=== PATIENT | female | born 1995 | race Caucasian/White ===

== ENCOUNTER 2020-01-10 20:42 | Inpatient (IN) | payer MEDICAID, OTHER ==
[~2020-01-10] VITALS: Ht 154.9 cm; Wt 85.6 kg
[2020-01-10 21:47] LABS: Basophils # (auto) 0.1 10 ^3/uL (0-0.2); Hematocrit 46.7 % (36.0-46.0); Lymphocytes # (auto) 0.9 10 ^3/uL (0.4-5.4); Monocytes # (auto) 0.1 10 ^3/uL (0-1.3)
[2020-01-10 21:49] LABS: Eosinophils # (auto) 0.1 10 ^3/uL (0-0.8); Eosinophils % (auto) 2.9 % (0.0-7.0); Hemoglobin 16.4 g/dL (12.2-16.2); Lymphocytes % (auto) 16.8 % (10.0-50.0); Mean Corpuscular Hemoglobin 34.2 pg (28.0-32.0); Mean Corpuscular Hgb Conc. 35.1 g/dL (32.0-36.0); Mean Corpuscular Volume 97.6 fL (80.0-100.0); Monocytes % (auto) 2.3 % (0.0-12.0); Neutrophils # (auto) 3.9 10 ^3/uL (1.6-8.6); Nucleated Red Blood Cells % 0.2 %; Platelet Count (auto) 168 10^3/uL (140-450); Red Blood Cells 4.78 10^6/uL (4.0-5.20); White Blood Cell 5.1 10^3/uL (4.4-10.8)
[2020-01-10 21:58] LABS: Albumin 4.2 g/dL (3.4-5.0); Calcium 8.6 mg/dL (8.5-10.1); Potassium 3.7 mmol/L (3.5-5.1)
[2020-01-10 22:06] LABS: BUN/Creatinine Ratio 11.9
[2020-01-10 22:09] LABS: Bilirubin, Total 1.7 mg/dL (0.2-1.0); Total Protein 8.4 g/dL (6.4-8.2)
[2020-01-10 22:20] LABS: Urine Bacteria MANY /hpf (None Seen); Urine Blood 2+ /uL (Negative); Urine Mucus FEW (None Seen); Urine Specific Gravity 1.037 (1.001-1.035); Urine WBC 195 /hpf (0 - 5)
[2020-01-11] MEDS ORDERED: cefTRIAXone 1GM/50ML D5W 50 ML IV ONE (02:15)
[2020-01-11] MEDS ORDERED: SODIUM CHLORIDE 0.9% 1,000 ML IV ONE (02:15)
[2020-01-11 02:39] LABS: Alcohol, Urine < 3.0 mg/dL (0-10); Amphetamine Screen, Urine NEGATIVE (NEGATIVE); Barbiturate Scree,Urine NEGATIVE (NEGATIVE); Benzodiazephine Screen, Urine NEGATIVE (NEGATIVE); Cannabinoid Screen, Urine POSITIVE (NEGATIVE); Cocaine Screen, Urine NEGATIVE (NEGATIVE); Opiate Scree,Urine NEGATIVE (NEGATIVE); Phencyclidine Screen, Urine NEGATIVE (NEGATIVE)
[2020-01-11] MEDS ORDERED: ONDANSETRON HCL 4 MG/2 ML VIAL IV ONE (04:30)
[2020-01-11] MEDS ORDERED: SODIUM CHLORIDE 0.9% 1,000 ML IV SCH (06:06)
[2020-01-11] MEDS: ONDANSETRON HCL 4 MG/2 ML VIAL IV PRN ×3 (06:49→22:12)
[2020-01-11] MEDS: MORPHINE SULFATE 4 MG/ML SYR/VIAL IV PRN ×2 (06:49→22:13)
[2020-01-11 07:29] LABS: Potassium 3.8 mmol/L (3.5-5.1)
[2020-01-11 07:42] LABS: Albumin 3.6 g/dL (3.4-5.0); Bilirubin, Total 1.2 mg/dL (0.2-1.0); Calcium 8.2 mg/dL (8.5-10.1)
[2020-01-11] MEDS ORDERED: PANTOPRAZOLE 40 MG/10 ML VIAL INJ IV SCH (10:00)
[2020-01-11] MEDS: SOD CHL 0.9%/ KCL 20MEQ 1,000 ML IV SCH (11:33)
[2020-01-11 12:16] LABS: INR 1.13 (0.9-1.15); Partial Thromboplastin Time 29.3 sec (23.64-32.05)
[2020-01-11] MEDS: FOLIC ACID 1 MG, MULTIPLE VITAMIN 10 ML, MAGNESIUM SULF SDV 50% 8 MEQ, THIAMINE INJ 100... INJ SCH ×5 (12:16)
[2020-01-11] MEDS ORDERED: chlordiazePOXIDE HCL 5 MG CAP PO PRN (12:30)
[2020-01-11] MEDS ORDERED: LORazepam 2MG/ML-1ML VIAL IV ONE (13:30)
--- NOTE | 2020-01-11 16:34 | NUR ---
MS admit from ER [facility] admitted to [place]. NO report received from ED. Patient oriented to RAGHU OGDEN, primary RN, unit, room, bed, and unit policies regarding patient care and visiting hours. Patient weighed by bedscale and encouraged to call if they need something. All questions and concerns addressed, patient verbalized understanding. Ice chips, JellO, and apple juice given. Pt cautioned to eat/drink slowly to avoid emesis.
[2020-01-11 16:44] VITALS: BP 124/76
--- NOTE | 2020-01-11 17:51 | NUR ---
JellO Patient tolerated JellO well. She is taking it slowly and eating ice chips. No emesis reported at this time.
[2020-01-11 22:00] VITALS: BP 118/75
[2020-01-11] MEDS: PANTOPRAZOLE 40 MG TAB PO SCH (22:14)
[2020-01-12 05:00] VITALS: BP 118/72
[2020-01-12] MEDS: SOD CHL 0.9%/ KCL 20MEQ 1,000 ML IV SCH ×2 (05:23→08:51)
[2020-01-12 06:46] LABS: Basophils # (auto) 0 10 ^3/uL (0-0.2); Eosinophils # (auto) 0.3 10 ^3/uL (0-0.8); Monocytes # (auto) 0.3 10 ^3/uL (0-1.3); Monocytes % (auto) 7.3 % (0.0-12.0); Red Blood Cells 3.94 10^6/uL (4.0-5.20); White Blood Cell 3.7 10^3/uL (4.4-10.8)
[2020-01-12 06:47] LABS: BUN/Creatinine Ratio 4.9; Calcium 8.2 mg/dL (8.5-10.1); Potassium 4.2 mmol/L (3.5-5.1)
[2020-01-12 06:49] LABS: Basophils % (auto) 0.7 % (0.0-2.0); Eosinophils % (auto) 8.9 % (0.0-7.0); Hematocrit 39.8 % (36.0-46.0); Hemoglobin 13.4 g/dL (12.2-16.2); Lymphocytes # (auto) 1.7 10 ^3/uL (0.4-5.4); Lymphocytes % (auto) 46.6 % (10.0-50.0); Mean Corpuscular Hgb Conc. 33.7 g/dL (32.0-36.0); Mean Corpuscular Volume 101.1 fL (80.0-100.0); Neutrophils # (auto) 1.3 10 ^3/uL (1.6-8.6); Neutrophils % (auto) 36.5 % (37.0-80.0); Nucleated Red Blood Cells % 0.3 %; Platelet Count (auto) 122 10^3/uL (140-450); Red Cell Distribution Width 13.8 % (11.8-14.3)
[2020-01-12 06:50] LABS: Bilirubin, Total 0.8 mg/dL (0.2-1.0); Total Protein 6.3 g/dL (6.4-8.2)
[2020-01-12 09:00] VITALS: BP 127/91
[2020-01-12] MEDS: PANTOPRAZOLE 40 MG TAB PO SCH ×2 (09:22→21:31)
[2020-01-12] MEDS ORDERED: CIPROFLOXACIN HCL 500 MG TAB PO ONE (10:45)
[2020-01-12] MEDS: MORPHINE SULFATE 4 MG/ML SYR/VIAL IV PRN ×2 (12:08→21:23)
[2020-01-12] MEDS: ONDANSETRON HCL 4 MG/2 ML VIAL IV PRN ×2 (12:08→21:20)
[2020-01-12] MEDS: FOLIC ACID 1 MG, MULTIPLE VITAMIN 10 ML, MAGNESIUM SULF SDV 50% 8 MEQ, THIAMINE INJ 100... INJ SCH ×5 (13:33)
[2020-01-12 17:00] VITALS: BP 115/58
[2020-01-12] MEDS: CIPROFLOXACIN HCL 500 MG TAB PO SCH (21:31)
[2020-01-12 22:00] VITALS: BP 122/80
[2020-01-13 05:00] VITALS: BP_SYST 112; BP_SYST 99; BP_DIAS 65; BP_DIAS 70
[2020-01-13] MEDS: ONDANSETRON HCL 4 MG/2 ML VIAL IV PRN (05:06)
[2020-01-13] MEDS: MORPHINE SULFATE 4 MG/ML SYR/VIAL IV PRN (05:08)
[2020-01-13 06:29] LABS: Albumin 3.6 g/dL (3.4-5.0); Calcium 8.6 mg/dL (8.5-10.1); Potassium 3.7 mmol/L (3.5-5.1)
[2020-01-13 06:33] LABS: BUN/Creatinine Ratio 7.1; Bilirubin, Total 0.6 mg/dL (0.2-1.0); Total Protein 7.1 g/dL (6.4-8.2)
[2020-01-13 07:29] LABS: Basophils # (auto) 0 10 ^3/uL (0-0.2); Basophils % (auto) 0.7 % (0.0-2.0); Eosinophils # (auto) 0.3 10 ^3/uL (0-0.8); Eosinophils % (auto) 5.9 % (0.0-7.0); Hematocrit 43.2 % (36.0-46.0); Hemoglobin 14.3 g/dL (12.2-16.2); Lymphocytes % (auto) 45.6 % (10.0-50.0); Mean Corpuscular Hemoglobin 33.2 pg (28.0-32.0); Mean Corpuscular Hgb Conc. 33.1 g/dL (32.0-36.0); Mean Corpuscular Volume 100.3 fL (80.0-100.0); Monocytes # (auto) 0.4 10 ^3/uL (0-1.3); Monocytes % (auto) 7.9 % (0.0-12.0); Neutrophils # (auto) 1.8 10 ^3/uL (1.6-8.6); Neutrophils % (auto) 39.9 % (37.0-80.0); Nucleated Red Blood Cells % 0.2 %; Platelet Count (auto) 150 10^3/uL (140-450); Red Blood Cells 4.31 10^6/uL (4.0-5.20); Red Cell Distribution Width 14.2 % (11.8-14.3); White Blood Cell 4.4 10^3/uL (4.4-10.8)
--- NOTE | 2020-01-13 07:49 | NUR ---
RECEIVED REPORT AND ASSUMED CARE OF PT. A/OX4. DENIED S/S ACUTE DISTRESS. UPDATE PT WITH POC. BED AT LOWEST POSITION. CALL LIGHT AND BELONGINGS WITHIN REACH. WILL CONT TO MONITOR.
--- NOTE | 2020-01-13 07:51 | NUR ---
Spoke with pt at length re. her alcohol abuse and living conditions. 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 Pt would like a list of shelters or groups that help find or provide retirement/ living quarters. Pt admits to 'self medication' and has said she would like to stop the alcohol and does "not like the marijuana." Order written for MORENITA.
[2020-01-13 09:00] VITALS: BP 107/64
[2020-01-13] MEDS: PANTOPRAZOLE 40 MG TAB PO SCH (10:21)
[2020-01-13] MEDS: CIPROFLOXACIN HCL 500 MG TAB PO SCH (10:21)
[2020-01-13 11:04] LABS: Hepatitis A Ab IgM Negative; Hepatitis B Core IgM Negative; Hepatitis B Surface Antigen Negative (Negative); Hepatitis C Antibody Negative (Negative)
[2020-01-13] MEDS: FOLIC ACID 1 MG, MULTIPLE VITAMIN 10 ML, MAGNESIUM SULF SDV 50% 8 MEQ, THIAMINE INJ 100... INJ SCH ×5 (12:00)
[2020-01-13 13:24] VITALS: BP 106/57
--- NOTE | 2020-01-13 14:17 | NUR ---
A/OX4.DENIED S/S ACUTE DISTRESS.DC INSTRUCTIONS GIVEN AND PT VERBALIZED UNDERSTANDING.EMPHASIZED NEED FOR F/U APPOINTMENT.IV DC. PT LEFT UNIT IN STABLE CONDITION.
[2020-01-13 14:32] VITALS: BP 106/57
== END 2020-01-13 14:15 | disposition home or self-care (01) | DRG 241 ==
LOC: ER 20:42 → OVERFLOW 20:43 → WEST WING 01-11 14:59
PROVIDERS: ADMIT Nurse Practitioner; ATTEND Internal Medicine
DX: K29.20 Alcoholic gastritis without bleeding (principal); K70.10 Alcoholic hepatitis without ascites; K76.0 Fatty (change of) liver, not elsewhere classified; F10.20 Alcohol dependence, uncomplicated; N39.0 Urinary tract infection, site not specified; B96.20 Unspecified Escherichia coli [E. coli] as the cause of diseases classified elsewhere; R79.89 Other specified abnormal findings of blood chemistry; F41.9 Anxiety disorder, unspecified; R04.0 Epistaxis; N26.1 Atrophy of kidney (terminal); F12.90 Cannabis use, unspecified, uncomplicated; Z88.7 Allergy status to serum and vaccine
CPT/HCPCS: 36415; 74176; 76705; 80053; 80074; 80307; 80320; 81001; 81025; 83690; 85025; 85610; 85730; 87086; 87088; 87186; C9113; G0378; J0696; J2405

== ENCOUNTER 2020-08-15 20:51 | Emergency (ER) | payer MEDICAID ==
[~2020-08-15] VITALS: Ht 154.9 cm; Wt 61.2 kg
[2020-08-15 23:19] LABS: Urine Bacteria FEW /hpf (None Seen); Urine Blood Negative /uL (Negative); Urine Mucus FEW (None Seen); Urine Specific Gravity 1.013 (1.001-1.035); Urine WBC 436 /hpf (0 - 5); Urine WBC Clumps PRESENT /hpf (None Seen)
[2020-08-16 00:18] VITALS: BP 114/63
== END 2020-08-15 23:48 | disposition home or self-care (01) ==
LOC: ER 20:57
DX: O23.42 Unspecified infection of urinary tract in pregnancy, second trimester (principal); O26.892 Other specified pregnancy related conditions, second trimester; M54.5 Low back pain; Z3A.24 24 weeks gestation of pregnancy
CPT/HCPCS: 81001; 81025

== ENCOUNTER 2020-12-01 23:00 | Inpatient (IN) | payer MEDICAID ==
[~2020-12-01] VITALS: Ht 154.9 cm; Wt 69.4 kg
[2020-12-01] MEDS ORDERED: LIDOCAINE 2%HCL (LOCAL ANESTH.) INJ 20ML MDV IJ ONE (23:45)
[2020-12-01] MEDS ORDERED: BUTORPHANOL TARTRATE 2 MG/1 ML VIAL IV PRN (23:45)
[2020-12-01] MEDS ORDERED: PROMETHAZINE HCL 25 MG/ML 1ML IM PRN (23:45)
[2020-12-02 00:31] LABS: Basophils # (auto) 0.1 10 ^3/uL (0-0.2); Basophils % (auto) 0.5 % (0.0-2.0); Eosinophils # (auto) 0.4 10 ^3/uL (0-0.8); Eosinophils % (auto) 2.1 % (0.0-7.0); Hematocrit 34.6 % (36.0-46.0); Hemoglobin 11.9 g/dL (12.2-16.2); Lymphocytes # (auto) 3.4 10 ^3/uL (0.4-5.4); Lymphocytes % (auto) 18.8 % (10.0-50.0); Mean Corpuscular Hemoglobin 32.3 pg (28.0-32.0); Mean Corpuscular Hgb Conc. 34.5 g/dL (32.0-36.0); Mean Corpuscular Volume 93.7 fL (80.0-100.0); Monocytes # (auto) 0.9 10 ^3/uL (0-1.3); Monocytes % (auto) 4.8 % (0.0-12.0); Neutrophils # (auto) 13.5 10 ^3/uL (1.6-8.6); Neutrophils % (auto) 73.8 % (37.0-80.0); Platelet Count (auto) 262 10^3/uL (140-450); Red Blood Cells 3.69 10^6/uL (4.0-5.20); Red Cell Distribution Width 14.8 % (11.8-14.3); White Blood Cell 18.4 10^3/uL (4.4-10.8)
[2020-12-02 00:40] LABS: Urine Bacteria MANY /hpf (None Seen); Urine Blood Negative /uL (Negative); Urine Mucus FEW (None Seen); Urine Specific Gravity 1.014 (1.001-1.035); Urine WBC 8 /hpf (0 - 5)
[2020-12-02 00:47] LABS: Albumin 2.8 g/dL (3.4-5.0); Calcium 8.7 mg/dL (8.5-10.1); Potassium 3.8 mmol/L (3.5-5.1)
[2020-12-02] MEDS: LACTATED RINGER'S 1,000 ML IV SCH ×3 (00:47→08:38)
[2020-12-02 00:49] LABS: BUN/Creatinine Ratio 11.1; INR 0.91 (0.9-1.15); Partial Thromboplastin Time 28.1 sec (23.0-31.2)
[2020-12-02 00:59] LABS: Bilirubin, Total 0.3 mg/dL (0.2-1.0); Total Protein 7.2 g/dL (6.4-8.2)
[2020-12-02] MEDS ORDERED: TERBUTALINE SULFATE 1 MG/ML 1ML VIAL SC ONE (02:15)
[2020-12-02] MEDS ORDERED: LACT. RINGERS/OXYTOCIN 20UNITS 1,000 ML IV SCH (03:00)
[2020-12-02] MEDS ORDERED: METHYLERGONOVINE MALEATE 0.2 MG/ML AMP IM ONE ×2 (08:00→15:53)
[2020-12-02] MEDS ORDERED: DIPHENOXYLATE W/ATROPINE 2.5 MG TAB PO PRN (08:00)
[2020-12-02] MEDS ORDERED: CARBOPROST TROMETHAMINE 250 MCG/1ML VIAL IM ONE (08:00)
[2020-12-02] MEDS ORDERED: LACT. RINGERS/OXYTOCIN 20UNITS 500 ML IV ONE ×2 (10:00)
[2020-12-02] MEDS ORDERED: NALOXONE HCL 0.4 MG/ML VIAL IV ONE (11:30)
[2020-12-02] MEDS ORDERED: LIDOCAINE 1%-Mpf/Epinephrine 1:200,000 IJ ONE (11:30)
[2020-12-02] MEDS ORDERED: ROPIVACAINE HCL 200 ML EPI SCH (11:30)
[2020-12-02] MEDS ORDERED: LIDOCAINE HCL 2 %PF INJ 10ML AMP IJ ONE (11:30)
[2020-12-02] MEDS ORDERED: ePHEDrine SULFATE 50 MG/ML AMP IV ONE (11:30)
[2020-12-02] MEDS ORDERED: fentaNYL CITRATE 100 MCG/2 ML VL IV ONE (11:30)
[2020-12-02] MEDS ORDERED: LACTATED RINGER'S 1,000 ML IV ONE (11:30)
[2020-12-02] MEDS ORDERED: miSOPROStol 100 mcg TAB ONE (15:48)
[2020-12-02] MEDS: WITCH HAZEL-GLYCERIN PAD TOP PRN (18:51)
[2020-12-02] MEDS: PHISODERM TOP SOLN 240ML BTL TOP PRN (18:51)
[2020-12-02] MEDS: DERMOPLAST 60ML BOTTLE TOP PRN (18:51)
[2020-12-02] MEDS: IBUPROFEN 600 MG TAB PO PRN (20:27)
[2020-12-02] MEDS ORDERED: AMMONIA 0.33 ML INHALANT IN ONE (20:59)
[2020-12-02 23:00] VITALS: BP 129/53
[2020-12-02] MEDS: ACETAMINOPHEN 325 MG TAB PO PRN (23:17)
[2020-12-03 03:15] VITALS: BP 105/66
[2020-12-03 03:53] LABS: Alcohol, Urine < 3.0 mg/dL (0-10); Amphetamine Screen, Urine NEGATIVE (NEGATIVE); Barbiturate Scree,Urine NEGATIVE (NEGATIVE); Benzodiazephine Screen, Urine NEGATIVE (NEGATIVE); Cannabinoid Screen, Urine NEGATIVE (NEGATIVE); Cocaine Screen, Urine NEGATIVE (NEGATIVE); Opiate Scree,Urine NEGATIVE (NEGATIVE); Phencyclidine Screen, Urine NEGATIVE (NEGATIVE)
[2020-12-03] MEDS ORDERED: PREN-96 OR (04:19)
[2020-12-03 06:06] LABS: RPR Non Reactive (Non Reactive)
[2020-12-03 07:17] VITALS: BP 111/66
[2020-12-03] MEDS: IBUPROFEN 600 MG TAB PO PRN ×2 (07:43→17:09)
[2020-12-03 11:30] VITALS: BP 119/84
[2020-12-03 12:38] LABS: Basophils # (auto) 0 10 ^3/uL (0-0.2); Basophils % (auto) 0.2 % (0.0-2.0); Eosinophils # (auto) 0.2 10 ^3/uL (0-0.8); Eosinophils % (auto) 1.2 % (0.0-7.0); Hematocrit 34.3 % (36.0-46.0); Hemoglobin 11.8 g/dL (12.2-16.2); Lymphocytes # (auto) 2.6 10 ^3/uL (0.4-5.4); Lymphocytes % (auto) 14.7 % (10.0-50.0); Mean Corpuscular Hgb Conc. 34.3 g/dL (32.0-36.0); Mean Corpuscular Volume 93.1 fL (80.0-100.0); Monocytes # (auto) 0.8 10 ^3/uL (0-1.3); Monocytes % (auto) 4.4 % (0.0-12.0); Neutrophils # (auto) 13.8 10 ^3/uL (1.6-8.6); Neutrophils % (auto) 79.5 % (37.0-80.0); Platelet Count (auto) 246 10^3/uL (140-450); Red Blood Cells 3.69 10^6/uL (4.0-5.20); Red Cell Distribution Width 15.2 % (11.8-14.3); White Blood Cell 17.4 10^3/uL (4.4-10.8)
[2020-12-03 12:55] LABS: Albumin 2.3 g/dL (3.4-5.0); Calcium 8.8 mg/dL (8.5-10.1); Potassium 4.4 mmol/L (3.5-5.1)
[2020-12-03 12:58] LABS: BUN/Creatinine Ratio 11.6; Bilirubin, Total 0.3 mg/dL (0.2-1.0); Total Protein 6.2 g/dL (6.4-8.2)
[2020-12-03] MEDS: ACETAMINOPHEN 325 MG TAB PO PRN (14:19)
[2020-12-03 15:30] VITALS: BP 112/77
[2020-12-03] MEDS: WITCH HAZEL-GLYCERIN PAD TOP PRN (17:09)
[2020-12-03] MEDS: DERMOPLAST 60ML BOTTLE TOP PRN (17:09)
[2020-12-03] MEDS: PHISODERM TOP SOLN 240ML BTL TOP PRN (17:09)
[2020-12-03 19:30] VITALS: BP 134/77
[2020-12-04 00:09] VITALS: BP 131/78
[2020-12-04] MEDS: ACETAMINOPHEN 325 MG TAB PO PRN (01:02)
[2020-12-04 03:00] VITALS: BP 106/34
[2020-12-04] MEDS: IBUPROFEN 600 MG TAB PO PRN ×3 (03:16→17:02)
[2020-12-04 06:40] VITALS: BP 124/75
[2020-12-04 07:38] LABS: Basophils # (auto) 0.1 10 ^3/uL (0-0.2); Basophils % (auto) 0.7 % (0.0-2.0); Eosinophils # (auto) 0.4 10 ^3/uL (0-0.8); Eosinophils % (auto) 2.5 % (0.0-7.0); Hematocrit 32.1 % (36.0-46.0); Lymphocytes # (auto) 3.8 10 ^3/uL (0.4-5.4); Lymphocytes % (auto) 23.7 % (10.0-50.0); Mean Corpuscular Hemoglobin 32.5 pg (28.0-32.0); Mean Corpuscular Hgb Conc. 34.4 g/dL (32.0-36.0); Mean Corpuscular Volume 94.6 fL (80.0-100.0); Monocytes # (auto) 0.7 10 ^3/uL (0-1.3); Monocytes % (auto) 4.4 % (0.0-12.0); Neutrophils # (auto) 11.1 10 ^3/uL (1.6-8.6); Neutrophils % (auto) 68.7 % (37.0-80.0); Platelet Count (auto) 246 10^3/uL (140-450); Red Cell Distribution Width 15.1 % (11.8-14.3); White Blood Cell 16.2 10^3/uL (4.4-10.8)
[2020-12-04 10:30] VITALS: BP 127/77
[2020-12-04 15:15] VITALS: BP 115/66
[2020-12-04] MEDS: DERMOPLAST 60ML BOTTLE TOP PRN (17:02)
[2020-12-04] MEDS: WITCH HAZEL-GLYCERIN PAD TOP PRN (17:02)
== END 2020-12-04 18:03 | disposition home or self-care (01) | DRG 560 ==
LOC: LDRP 23:00 → OBSVTOIN 23:00 → LDRP 12-02
PROVIDERS: ADMIT Obstetrics & Gynecology; ATTEND Obstetrics & Gynecology
PROC: 10E0XZZ Delivery of Products of Conception, External Approach (ICD-10-PCS; principal; 2020-12-02)
PROC: 0UQMXZZ Repair Vulva, External Approach (ICD-10-PCS; 2020-12-02)
PROC: 3E0R3BZ Introduction of Anesthetic Agent into Spinal Canal, Percutaneous Approach (ICD-10-PCS; 2020-12-02)
PROC: 00HU33Z Insertion of Infusion Device into Spinal Canal, Percutaneous Approach (ICD-10-PCS; 2020-12-02)
DX: O69.81X0 Labor and delivery complicated by cord around neck, without compression, not applicable or unspecified (principal); O71.82 Other specified trauma to perineum and vulva; Z37.0 Single live birth; Z3A.39 39 weeks gestation of pregnancy; Z20.822 Contact with and (suspected) exposure to COVID-19; Z88.7 Allergy status to serum and vaccine
CPT/HCPCS: 36415; 59025; 59409; 62282; 80053; 80307; 81001; 81002; 85025; 85610; 85730; 86592; 86850; 86900; 86901; 87086; 87088; 87186; 87426; 96361; 96365; 96366; 96372; G0378; J2590

== ENCOUNTER → 2021-10-16 | Outpatient (CLI) | payer MEDICAID ==
[~2021-10-16] MED LIST: PREN-96 OR
[2021-10-16 11:31] LABS: Basophils # (auto) 0 10 ^3/uL (0-0.2); Basophils % (auto) 0.4 % (0.0-2.0); Eosinophils # (auto) 0.2 10 ^3/uL (0-0.8); Eosinophils % (auto) 2.5 % (0.0-7.0); Hematocrit 37.5 % (36.0-46.0); Lymphocytes # (auto) 2.4 10 ^3/uL (0.4-5.4); Lymphocytes % (auto) 24.2 % (10.0-50.0); Mean Corpuscular Hemoglobin 31.4 pg (28.0-32.0); Mean Corpuscular Hgb Conc. 34.7 g/dL (32.0-36.0); Mean Corpuscular Volume 90.5 fL (80.0-100.0); Monocytes # (auto) 0.5 10 ^3/uL (0-1.3); Monocytes % (auto) 5.5 % (0.0-12.0); Neutrophils # (auto) 6.6 10 ^3/uL (1.6-8.6); Neutrophils % (auto) 67.4 % (37.0-80.0); Nucleated Red Blood Cells % 0.1 %; Red Blood Cells 4.14 10^6/uL (4.0-5.20); Red Cell Distribution Width 13.5 % (11.8-14.3); White Blood Cell 9.8 10^3/uL (4.4-10.8)
[2021-10-16 11:51] LABS: Amphetamine Screen, Urine NEGATIVE (NEGATIVE); Barbiturate Scree,Urine NEGATIVE (NEGATIVE); Benzodiazephine Screen, Urine NEGATIVE (NEGATIVE); Cannabinoid Screen, Urine NEGATIVE (NEGATIVE); Cocaine Screen, Urine NEGATIVE (NEGATIVE); Opiate Scree,Urine NEGATIVE (NEGATIVE); Phencyclidine Screen, Urine NEGATIVE (NEGATIVE)
[2021-10-17 07:07] LABS: RPR Non Reactive (Non Reactive)
== END | disposition home or self-care (01) ==
LOC: LAB 10:20
PROVIDERS: ATTEND Obstetrics & Gynecology
DX: Z34.80 Encounter for supervision of other normal pregnancy, unspecified trimester (principal); Z31.430 Encounter of female for testing for genetic disease carrier status for procreative management; Z36.0 Encounter for antenatal screening for chromosomal anomalies; N39.0 Urinary tract infection, site not specified
CPT/HCPCS: 36415; 80307; 83036; 84112; 84702; 85025; 86592; 86703; 86762; 86850; 86900; 86901; 87086; 87088; 87186; 87340

== ENCOUNTER 2022-03-11 21:19 | Observation (INO) | payer MEDICAID ==
[~2022-03-11] VITALS: Ht 154.9 cm; Wt 70.3 kg
[2022-03-11] MEDS ORDERED: LACTATED RINGER'S 1,000 ML IV SCH (22:15)
[2022-03-11] MEDS ORDERED: PROMETHAZINE HCL 25 MG/ML 1ML IV ONE (22:15)
[2022-03-11] MEDS ORDERED: ACETAMINOPHEN 650 mg PER 20.3 mL UD PO ONE (22:15)
[2022-03-11] MEDS ORDERED: LACTATED RINGER'S 1,000 ML IV ONE (22:15)
[2022-03-11 23:10] LABS: Urine Bacteria FEW /hpf (None Seen); Urine Blood Negative /uL (Negative); Urine Specific Gravity 1.006 (1.001-1.035); Urine WBC <1 /hpf (0 - 5)
[2022-03-11] MEDS ORDERED: ACETAMINOPHEN 325 MG TAB PO ONE (23:30)
[2022-03-11 23:35] LABS: Albumin 2.5 g/dL (3.4-5.0); Calcium 7.6 mg/dL (8.5-10.1); Potassium 3.8 mmol/L (3.5-5.1)
[2022-03-11 23:38] LABS: BUN/Creatinine Ratio 6.1
[2022-03-11 23:41] LABS: Bilirubin, Total 0.2 mg/dL (0.2-1.0)
[2022-03-11 23:50] LABS: Hematocrit 28.4 % (36.0-46.0); Hemoglobin 9.5 g/dL (12.2-16.2); Mean Corpuscular Hemoglobin 31.9 pg (28.0-32.0); Mean Corpuscular Hgb Conc. 33.4 g/dL (32.0-36.0); Mean Corpuscular Volume 95.6 fL (80.0-100.0); Red Blood Cells 2.97 10^6/uL (4.0-5.20); Red Cell Distribution Width 13.5 % (11.8-14.3); White Blood Cell 17.8 10^3/uL (4.4-10.8)
[2022-03-12 00:03] LABS: Basophils % (manual) 0 (0.0-2.0); Blast Cells 0; Promyelocytes % 0; Reactive Lymphocytes 0
[2022-03-12 00:49] LABS: Band Neutrophils % (manual) 15; Eosinophils % (manual) 2 (0-7); Lymphocytes % (manual) 7 (10.0-50.0); Metamyelocytes % 1; Monocytes % (manual) 9 (0-12); Myelocytes % 9
== END 2022-03-12 02:18 | disposition home or self-care (01) ==
LOC: LDRP 21:19
PROVIDERS: ADMIT Obstetrics & Gynecology Obstetrics; ATTEND Obstetrics & Gynecology Obstetrics
DX: O98.513 Other viral diseases complicating pregnancy, third trimester (principal); U07.1 COVID-19; O21.2 Late vomiting of pregnancy; O26.893 Other specified pregnancy related conditions, third trimester; R51.9 Headache, unspecified; R50.9 Fever, unspecified; R05.9 Cough, unspecified; R09.81 Nasal congestion; Z3A.31 31 weeks gestation of pregnancy; Z86.16 Personal history of COVID-19
CPT/HCPCS: 36415; 59025; 80053; 81001; 85007; 85027; 87426; 94760; 94762; 96361; 96374; G0378; J2550; U0003; 81002; 96360

== ENCOUNTER 2022-03-12 03:33 | Emergency (ER) | payer MEDICAID ==
[~2022-03-12] VITALS: Ht 154.9 cm; Wt 70.0 kg
[2022-03-12] MEDS ORDERED: SODIUM CHLORIDE 0.9% 1,000 ML IV ONE (04:00)
[2022-03-12 04:47] LABS: Lactic Acid w/Reflex 2.1 mmol/L (0.4-2.0)
[2022-03-12 12:41] VITALS: BP 143/96
== END 2022-03-12 10:05 | disposition short-term general hospital (02) ==
LOC: ER 03:33
DX: O98.513 Other viral diseases complicating pregnancy, third trimester (principal); U07.1 COVID-19; O99.513 Diseases of the respiratory system complicating pregnancy, third trimester; J98.8 Other specified respiratory disorders; Z3A.31 31 weeks gestation of pregnancy
CPT/HCPCS: 71045; 83605; 87040; 87077; 87186; 96360; 99285; J7030

== ENCOUNTER → 2022-04-10 | Outpatient (CLI) | payer MEDICAID ==
[2022-04-10 09:30] LABS: Hematocrit 31.4 % (36.0-46.0); Hemoglobin 10.3 g/dL (12.2-16.2); Mean Corpuscular Hemoglobin 30.5 pg (28.0-32.0); Mean Corpuscular Hgb Conc. 32.8 g/dL (32.0-36.0); Red Blood Cells 3.37 10^6/uL (4.0-5.20); Red Cell Distribution Width 13.5 % (11.8-14.3)
[2022-04-10 09:40] LABS: Basophils % (manual) 0 (0.0-2.0); Metamyelocytes % 0; Reactive Lymphocytes 0
[2022-04-10 12:30] LABS: Band Neutrophils % (manual) 4; Blast Cells 1; Eosinophils % (manual) 2 (0-7); Lymphocytes % (manual) 14 (10.0-50.0); Monocytes % (manual) 10 (0-12); Myelocytes % 2; Promyelocytes % 1
[2022-04-11 07:06] LABS: RPR Non Reactive (Non Reactive)
== END | disposition home or self-care (01) ==
LOC: LAB 08:50
PROVIDERS: ATTEND Obstetrics & Gynecology
DX: Z34.80 Encounter for supervision of other normal pregnancy, unspecified trimester (principal); Z3A.00 Weeks of gestation of pregnancy not specified
CPT/HCPCS: 36415; 84112; 85007; 85027; 86592

== ENCOUNTER 2022-05-01 07:16 | Observation (INO) | payer MEDICAID | END 2022-05-01 12:32 | disposition home or self-care (01) | LOC: UNDOADMOB 10:29 → LDRP 10:29 → UNDODISOB 12:32 | PROVIDERS: ADMIT Obstetrics & Gynecology; ATTEND Obstetrics & Gynecology | DX: O62.9 Abnormality of forces of labor, unspecified (principal); O12.03 Gestational edema, third trimester; O99.333 Smoking (tobacco) complicating pregnancy, third trimester; F17.200 Nicotine dependence, unspecified, uncomplicated; O26.893 Other specified pregnancy related conditions, third trimester; R10.2 Pelvic and perineal pain; Z3A.39 39 weeks gestation of pregnancy | CPT/HCPCS: 59025; 76818; G0378 ==

== ENCOUNTER 2022-05-08 21:00 | Observation (INO) | payer MEDICAID | END 2022-05-08 22:51 | disposition home or self-care (01) | LOC: LDRP 21:00 | PROVIDERS: ADMIT Obstetrics & Gynecology; ATTEND Obstetrics & Gynecology | DX: O48.0 Post-term pregnancy (principal); O26.893 Other specified pregnancy related conditions, third trimester; R10.9 Unspecified abdominal pain; R11.0 Nausea; O12.03 Gestational edema, third trimester; Z3A.40 40 weeks gestation of pregnancy; Z87.891 Personal history of nicotine dependence | CPT/HCPCS: 59025; 76818; 81002; G0378 ==

== ENCOUNTER 2022-05-10 21:05 | Inpatient (IN) | payer MEDICAID ==
[~2022-05-10] VITALS: Ht 154.9 cm; Wt 74.4 kg
[2022-05-10] MEDS ORDERED: DERMOPLAST 60ML BOTTLE TOP PRN (22:00)
[2022-05-10] MEDS ORDERED: LIDOCAINE 2%HCL (LOCAL ANESTH.) INJ 10ml MDV IJ PRN (22:00)
[2022-05-10] MEDS ORDERED: PHISODERM TOP SOLN 240ML BTL TOP PRN (22:00)
[2022-05-10] MEDS ORDERED: WITCH HAZEL-GLYCERIN PAD TOP PRN (22:00)
[2022-05-10] MEDS ORDERED: BUTORPHANOL TARTRATE 2 MG/1 ML VIAL IV PRN ×2 (22:00)
[2022-05-10] MEDS ORDERED: PROMETHAZINE HCL 25 MG/ML 1ML IV PRN (22:00)
[2022-05-10 22:28] LABS: Hematocrit 28.5 % (36.0-46.0); Hemoglobin 9.5 g/dL (12.2-16.2); Mean Corpuscular Hemoglobin 30.6 pg (28.0-32.0); Mean Corpuscular Hgb Conc. 33.3 g/dL (32.0-36.0); Mean Corpuscular Volume 91.9 fL (80.0-100.0); Red Blood Cells 3.11 10^6/uL (4.0-5.20); Red Cell Distribution Width 14.8 % (11.8-14.3); White Blood Cell 17.8 10^3/uL (4.4-10.8)
[2022-05-10 22:38] LABS: Urine Bacteria FEW /hpf (None Seen); Urine Blood Negative /uL (Negative); Urine Mucus FEW (None Seen); Urine Specific Gravity 1.027 (1.001-1.035); Urine WBC 2 /hpf (0 - 5)
[2022-05-10 22:45] LABS: Albumin 2.3 g/dL (3.4-5.0); Potassium 3.8 mmol/L (3.5-5.1)
[2022-05-10 22:47] LABS: Basophils % (manual) 0 (0.0-2.0); Blast Cells 0; Metamyelocytes % 0; Promyelocytes % 0; Reactive Lymphocytes 0
[2022-05-10 22:47] LABS: Alcohol, Urine < 3.0 mg/dL (0-10); Amphetamine Screen, Urine NEGATIVE (NEGATIVE); Barbiturate Scree,Urine NEGATIVE (NEGATIVE); Benzodiazephine Screen, Urine NEGATIVE (NEGATIVE); Cannabinoid Screen, Urine NEGATIVE (NEGATIVE); Cocaine Screen, Urine NEGATIVE (NEGATIVE); Opiate Scree,Urine NEGATIVE (NEGATIVE); Phencyclidine Screen, Urine NEGATIVE (NEGATIVE)
[2022-05-10 22:48] LABS: Bilirubin, Total 0.3 mg/dL (0.2-1.0); Total Protein 5.9 g/dL (6.4-8.2)
[2022-05-10 22:49] LABS: INR 0.92 (0.9-1.15); Partial Thromboplastin Time 27.1 sec (24.6-33.4)
[2022-05-10] MEDS: LACTATED RINGER'S 1,000 ML IV SCH (22:56)
[2022-05-10 23:19] LABS: Band Neutrophils % (manual) 2; Eosinophils % (manual) 2 (0-7); Lymphocytes % (manual) 19 (10.0-50.0); Monocytes % (manual) 2 (0-12); Myelocytes % 1
[2022-05-11] MEDS ORDERED: miSOPROStol 50 MCG per PRE-CUT 1/2 TAB PO PRN
[2022-05-11] MEDS: LACTATED RINGER'S 1,000 ML IV SCH ×4 (00:50→23:08)
[2022-05-11] MEDS ORDERED: METHYLERGONOVINE MALEATE 0.2 MG/ML AMP IM PRN (01:15)
[2022-05-11] MEDS ORDERED: LACT. RINGERS/OXYTOCIN 20UNITS 500 ML IV ONE ×2 (01:15→01:45)
[2022-05-11] MEDS ORDERED: TERBUTALINE SULFATE 1 MG/ML 1ML VIAL SC PRN (05:00)
[2022-05-11] MEDS ORDERED: LACT. RINGERS/OXYTOCIN 20UNITS 1,000 ML IV SCH (05:00)
[2022-05-11] MEDS ORDERED: ROPIVACAINE HCL 200 ML EPI SCH ×2 (12:45→13:15)
[2022-05-11] MEDS ORDERED: ePHEDrine SULFATE 50 MG/ML AMP IV ONE (12:45)
[2022-05-11] MEDS ORDERED: LACTATED RINGER'S 1,000 ML IV ONE (12:45)
[2022-05-11] MEDS ORDERED: fentaNYL CITRATE 100 MCG/2 ML VL IV ONE (12:45)
[2022-05-11] MEDS ORDERED: NALOXONE HCL 0.4 MG/ML VIAL IV ONE (12:45)
[2022-05-11] MEDS ORDERED: NIF10C PO (13:15)
[2022-05-11] MEDS ORDERED: FAMOTIDINE (10MG/ML) 2ML VL IV ONE (13:44)
[2022-05-11] MEDS ORDERED: ceFAZolin 1GM/50ML 50 ML IV ONE (17:45)
[2022-05-11] MEDS ORDERED: IRON50IN3 IJ (17:45)
[2022-05-11] MEDS ORDERED: IBUP800T27 PO (17:45)
[2022-05-11] MEDS ORDERED: DOCU-94 PO (17:45)
[2022-05-11] MEDS ORDERED: HYDR-4902 PO (17:45)
[2022-05-11] MEDS ORDERED: ceFAZolin 2 GM in D5W 5% 100 ML IV STA (18:09)
[2022-05-11] MEDS ORDERED: ceFAZolin 1GM/50ML 100 ML IV ONE (18:11)
[2022-05-11] MEDS ORDERED: MORPHINE SULF PF 5 MG/10 ML VIAL ONE (18:13)
[2022-05-11] MEDS ORDERED: LIDOCAINE 2% (LOCAL ANESTH.) PF 5ml SDV ONE (18:14)
[2022-05-11] MEDS ORDERED: ePHEDrine SULFATE 50 MG/ML AMP ONE (18:14)
[2022-05-11] MEDS ORDERED: DexAMETHasone SOD PHOS 10MG/1ML VIAL INJ ONE (18:14)
[2022-05-11] MEDS ORDERED: ONDANSETRON HCL 4 MG/2 ML VIAL ONE ×2 (18:14→19:46)
[2022-05-11] MEDS ORDERED: GLYCOPYRROLATE 0.2 MG/ML 1ML VIAL ONE (18:14)
[2022-05-11] MEDS ORDERED: PHENYLEPHRINE HCL 10 MG/ML VL ONE (18:14)
[2022-05-11] MEDS ORDERED: oxyTOCIN 10 UNIT/ML 10ML VIAL ONE (18:14)
[2022-05-11] MEDS ORDERED: SUCCINYLCHOLINE CHLORIDE 20 MG/ML 10ML VIAL IV ONE (18:20)
[2022-05-11] MEDS ORDERED: miSOPROStol 100 mcg TAB SL PRN (18:30)
[2022-05-11] MEDS ORDERED: CARBOPROST TROMETHAMINE 250 MCG/1ML VIAL IM PRN (18:30)
[2022-05-11] MEDS ORDERED: ONDANSETRON HCL 4 MG/2 ML VIAL IV PRN ×4 (19:00→21:45)
[2022-05-11] MEDS: ceFAZolin 1GM/50ML 50 ML IV SCH (19:00)
[2022-05-11] MEDS ORDERED: GUM (CHEWING) 1 GUM CHEW CHEW ONE (19:00)
[2022-05-11] MEDS ORDERED: LACT. RINGERS/OXYTOCIN 20UNITS 1,000 ML IV ONE (19:00)
[2022-05-11] MEDS ORDERED: MEPERIDINE HCL (25 MG/ML) 1ML VIAL ONE (19:31)
[2022-05-11] MEDS ORDERED: NALBUPHINE HCL 10 MG/1ml INJECTION SUBCUT PRN (19:45)
[2022-05-11] MEDS ORDERED: KETOROLAC TROMETH 30 MG/ML 1ML VIAL IV ONE (19:45)
[2022-05-11] MEDS ORDERED: METOCLOPRAMIDE HCL 5MG/ml INJ 2ml VIAL IV PRN (19:45)
[2022-05-11] MEDS ORDERED: NALOXONE HCL 0.4 MG/ML VIAL IV PRN (19:45)
[2022-05-11] MEDS ORDERED: DexAMETHasone SOD PHOS 10MG/1ML VIAL INJ IV PRN (19:45)
[2022-05-11] MEDS ORDERED: diphenhdrAMINE HCL 50 MG/1 ML VL IV PRN (19:45)
[2022-05-11] MEDS ORDERED: KETOROLAC TROMETH 30 MG/ML 1ML VIAL IV PRN (19:45)
[2022-05-11 20:30] VITALS: BP 134/70
[2022-05-11 21:30] VITALS: BP 132/71
[2022-05-11] MEDS ORDERED: LACTATED RINGER'S 1,000 ML IV SCH (21:45)
[2022-05-11] MEDS ORDERED: ePHEDrine SULFATE 50 MG/ML AMP IV PRN (21:45)
[2022-05-11] MEDS: DIPHENOXYLATE W/ATROPINE 2.5 MG TAB PO SCH (22:00)
[2022-05-11 22:30] VITALS: BP 120/86
[2022-05-11 23:00] VITALS: BP 120/86
[2022-05-11 23:30] VITALS: BP 117/62
[2022-05-12] VITALS (19 sets, daily range): BP systolic 91–118; BP diastolic 49–90
[2022-05-12] MEDS: ACETAMINOPHEN IV 1000 MG/100ML (10MG/ML) IV PRN ×2 (01:37→09:40)
[2022-05-12] MEDS: ceFAZolin 1GM/50ML 50 ML IV SCH ×2 (03:06→10:43)
[2022-05-12 06:22] LABS: Basophils # (auto) 0.2 10 ^3/uL (0-0.2); Eosinophils # (auto) 0 10 ^3/uL (0-0.8); Eosinophils % (auto) 0.1 % (0.0-7.0); Hematocrit 27.4 % (36.0-46.0); Hemoglobin 9.7 g/dL (12.2-16.2); Lymphocytes # (auto) 1.9 10 ^3/uL (0.4-5.4); Lymphocytes % (auto) 8.8 % (10.0-50.0); Mean Corpuscular Hemoglobin 32.5 pg (28.0-32.0); Mean Corpuscular Hgb Conc. 35.4 g/dL (32.0-36.0); Mean Corpuscular Volume 91.7 fL (80.0-100.0); Monocytes # (auto) 0.9 10 ^3/uL (0-1.3); Neutrophils # (auto) 18.7 10 ^3/uL (1.6-8.6); Neutrophils % (auto) 86.1 % (37.0-80.0); Red Blood Cells 2.99 10^6/uL (4.0-5.20); Red Cell Distribution Width 14.7 % (11.8-14.3); White Blood Cell 21.7 10^3/uL (4.4-10.8)
[2022-05-12] MEDS ORDERED: HYDROcodone-ACET 5/325MG TAB PO PRN (07:45)
[2022-05-12] MEDS ORDERED: BISACODYL 10 MG RECT SUPP PR PRN (07:45)
[2022-05-12] MEDS: IBUPROFEN 800 MG TAB PO PRN ×2 (07:55→17:16)
[2022-05-12 08:06] LABS: RPR Non Reactive (Non Reactive)
[2022-05-12] MEDS: DOCUSATE SOD 100 MG CAP PO SCH ×2 (09:39→21:31)
[2022-05-12] MEDS: FERROUS SULFATE 325mg EC TAB PO SCH ×2 (09:40→21:31)
[2022-05-12] MEDS: SIMETHICONE 80 MG CHEWABLE TABLET PO SCH ×3 (12:31→21:31)
[2022-05-12] MEDS: HYDROcodone-ACET 5/325MG TAB PO PRN ×2 (14:01→21:31)
[2022-05-13] MEDS: IBUPROFEN 800 MG TAB PO PRN ×3 (01:28→17:32)
[2022-05-13 03:00] VITALS: BP 110/53
[2022-05-13] MEDS: HYDROcodone-ACET 5/325MG TAB PO PRN ×4 (03:00→23:52)
[2022-05-13] MEDS: SIMETHICONE 80 MG CHEWABLE TABLET PO SCH ×2 (06:00→20:15)
[2022-05-13] MEDS ORDERED: FAMOTIDINE (10MG/ML) 2ML VL IV PRN (06:30)
[2022-05-13 07:00] VITALS: BP 96/42
[2022-05-13] MEDS: DOCUSATE SOD 100 MG CAP PO SCH ×2 (09:54→21:55)
[2022-05-13 11:00] VITALS: BP 118/64
[2022-05-13 15:00] VITALS: BP 116/59
[2022-05-13 18:30] VITALS: BP 124/82
[2022-05-13] MEDS: FERROUS SULFATE 325mg EC TAB PO SCH (21:55)
[2022-05-13] MEDS: DIPHENOXYLATE W/ATROPINE 2.5 MG TAB PO SCH (22:00)
[2022-05-13 23:00] VITALS: BP 118/69
[2022-05-14 02:30] VITALS: BP 117/17
[2022-05-14] MEDS: IBUPROFEN 800 MG TAB PO PRN (03:55)
[2022-05-14] MEDS: HYDROcodone-ACET 5/325MG TAB PO PRN (05:40)
[2022-05-14 06:45] VITALS: BP 104/57
[2022-05-14] MEDS ORDERED: FERR-7 PO (08:30)
== END 2022-05-14 09:00 | disposition home or self-care (01) | DRG 540 ==
LOC: LDRP 21:05
PROVIDERS: ADMIT Obstetrics & Gynecology; ATTEND Obstetrics & Gynecology
PROC: 10D00Z1 Extraction of Products of Conception, Low, Open Approach (ICD-10-PCS; principal; 2022-05-11 18:22)
DX: O48.0 Post-term pregnancy (principal); Q60.0 Renal agenesis, unilateral; Z3A.40 40 weeks gestation of pregnancy; O69.81X0 Labor and delivery complicated by cord around neck, without compression, not applicable or unspecified; Z20.822 Contact with and (suspected) exposure to COVID-19; O99.02 Anemia complicating childbirth; Z37.0 Single live birth; Z87.891 Personal history of nicotine dependence
CPT/HCPCS: 36415; 59025; 62282; 80053; 80307; 81001; 81002; 85007; 85025; 85027; 85610; 85730; 86592; 86850; 86900; 86901; 86920; 87426; 94760; 94762; 96360; 96361; 96365; 96366; G0378; J0131; J0330; J0690; J1100; J1885; J2001; J2405; J2590; J3490; J7060

== ENCOUNTER 2023-04-30 15:34 | Emergency (ER) | payer MEDICAID ==
[~2023-04-30] VITALS: Ht 154.9 cm; Wt 66.6 kg
[~2023-04-30 15:34] MED LIST changes: +DOCU-94 PO; +FERR-7 PO; +HYDR-4902 PO; +IBUP-1456 PO
[2023-04-30 16:38] LABS: Urine Bacteria FEW /hpf (None Seen); Urine Blood Negative /uL (Negative); Urine Clarity Clear (Clear); Urine Color Colorless (Yellow); Urine Protein, UAD Negative (Negative); Urine Specific Gravity 1.002 (1.001-1.035); Urine Urobilinogen Normal (Negative); Urine WBC 30 /hpf (0 - 5)
[2023-04-30] MEDS ORDERED: ONDANSETRON ODT 4 MG TAB PO ONE (17:45)
[2023-04-30 18:33] LABS: Basophils # (auto) 0 10 ^3/uL (0-0.2); Basophils % (auto) 0.4 % (0.0-2.0); Eosinophils # (auto) 0.3 10 ^3/uL (0-0.8); Eosinophils % (auto) 2.7 % (0.0-7.0); Hematocrit 38.5 % (36.0-46.0); Hemoglobin 13.2 g/dL (12.2-16.2); Lymphocytes # (auto) 2.8 10 ^3/uL (0.4-5.4); Lymphocytes % (auto) 26.4 % (10.0-50.0); Mean Corpuscular Hemoglobin 31.7 pg (28.0-32.0); Mean Corpuscular Hgb Conc. 34.3 g/dL (32.0-36.0); Mean Corpuscular Volume 92.3 fL (80.0-100.0); Monocytes # (auto) 0.3 10 ^3/uL (0-1.3); Monocytes % (auto) 3.2 % (0.0-12.0); Neutrophils # (auto) 7.3 10 ^3/uL (1.6-8.6); Neutrophils % (auto) 67.3 % (37.0-80.0); Nucleated Red Blood Cells % 0.1 %; Red Blood Cells 4.17 10^6/uL (4.0-5.20); Red Cell Distribution Width 13.2 % (11.8-14.3); White Blood Cell 10.8 10^3/uL (4.4-10.8)
[2023-04-30 18:51] LABS: Alanine Aminotransferase 117 U/L (7-40); Albumin 4.3 g/dL (3.2-4.8); Alkaline Phosphatase 74 U/L (46-116); Anion Gap 5 (5-15); Aspartate Aminotransferase 54 U/L (13-40); BUN/Creatinine Ratio 13.1 (10.0-20.0); Bilirubin, Total 0.3 mg/dL (0.2-1.0); Blood Urea Nitrogen 11 mg/dL (9-23); Calcium 8.8 mg/dL (8.7-10.4); Carbon Dioxide 26 mmol/L (20-30); Chloride 108 mmol/L (98-107); Glucose 93 mg/dL (74-106); Lipase 107 U/L (12-53); Potassium 3.9 mmol/L (3.5-5.1); Sodium 139 mmol/L (136-145); Total Protein 6.7 g/dL (5.7-8.2)
[2023-04-30] MEDS ORDERED: cefTRIAXone SOD 1,000 MG VL IM ONE (19:00)
[2023-04-30] MEDS ORDERED: SODIUM CHLORIDE 0.9% 1,000 ML IV ONE (20:00)
[2023-04-30 20:48] VITALS: BP 155/89; PULSE 94; RESP 16; TEMP 99; O2SAT 98
[2023-04-30] MEDS ORDERED: CEPH500T PO (21:10)
[2023-04-30] MEDS ORDERED: MECLIZINE HCL 25 MG TAB PO ONE (23:15)
[2023-04-30] MEDS: KETOROLAC TROMETH 30 MG/ML 1ML VIAL IV ONE ×2 (23:29→23:32)
== END 2023-04-30 23:40 | disposition home or self-care (01) ==
LOC: ER 15:34
DX: K85.90 Acute pancreatitis without necrosis or infection, unspecified (principal); N12 Tubulo-interstitial nephritis, not specified as acute or chronic; Z88.8 Allergy status to other drugs, medicaments and biological substances; Z79.1 Long term (current) use of non-steroidal anti-inflammatories (NSAID); Z79.899 Other long term (current) drug therapy
CPT/HCPCS: 36415; 74176; 80053; 81001; 81025; 83690; 85025; 87040; 96361; 96372; 96374; 99285; J0696; J1885; J7030; J8597; Q0162

== ENCOUNTER 2024-09-21 09:20 | Inpatient (IN) | payer MEDICAID ==
[~2024-09-21] VITALS: Ht 154.9 cm; Wt 69.0 kg
[~2024-09-21 09:20] MED LIST changes: +CEPH500T PO
--- NOTE | 2024-09-21 10:10 | ED.PDOC ---
GI ASSESSMENT HPI Comments 29 year old female presents to the ED with chief complaint of abdominal pain. Patient reports that she has been experiencing RLQ abdominal pain since this morning with associated N/V yesterday along with right flank pain, headache, and dysuria for the past week. Patient relays that she has only one kidney on the right side where her pain is currently. Patient denies any diarrhea, fever, chills, chest pain, SOB, hematuria, or dizziness. Chief Complaint: Abdominal Pain Time Seen by MD: 10:05 Primary Care Provider: none Reviewed Notes: Nurses Notes, Medications, Allergies Allergies: Coded Allergies: Diphtheria Toxoid (Verified Allergy, Unknown, 05/10/22) Pertussis Vaccine (Verified Allergy, Unknown, Hives, 05/11/22) Hives and leg atrophy during childhood. Tetanus Toxoids (Verified Allergy, Unknown, 05/10/22) Uncoded Allergies: TDAP (Allergy, Unknown, 01/10/20) Home Meds Active Scripts Cephalexin Monohydrate (Cephalexin) 500 Mg Tab, 1 TAB PO QID for 7 Days, #28 TAB 0 Refills Prov:BE DAILY [employer] 04/30/23 Ibuprofen (Ibuprofen) 800 Mg Tab, 800 MG PO TID PRN for 15 Days, #40 TAB Prov:REGINA SANCHEZ 05/11/22 Hydrocodone-Acetaminophen (Hydrocodone Bitartrate/AC 5-325 mg) 1 Tab Tab, 1 TAB PO Q6HP PRN for 5 Days, #20 TAB Prov:REGINA SANCHEZ 05/11/22 Docusate Sodium (Colace) 100 Mg Cap, 1 CAP PO BID, #60 CAP 2 Refills Prov:REGINA SANCHEZ 05/11/22 Reported Medications Ferrous Sulfate (Iron) 325 Mg Tab, 325 MG PO TID, TAB 05/14/22 Vit W/ Ferrous Fumara ( One Daily) Daily Tab, 1 OR DAILY, TAB 12/03/20 Information Source: Patient Mode of Arrival: Ambulatory Timing: Days Duration: Since onset Prehospital treatment: None Quality: Aching Vomitus: Watery Stool: Normal Severity: Moderate Recent: None Recent Hx of: None Pain Location: RLQ Modifying Factors: Nothing Associated sign and symptoms: Nausea, Vomiting, Abdominal Pain, Other (headache, flank pain) Past Medical History PAST MEDICAL HISTORY: UTI'S Surgical History: Surgical History (Other): Nephrectomy SHIP/REC/DOC CONTROL History: No Pertinent SHIP/REC/DOC CONTROL History Family History Family History: Reviewed,noncontributory to illness, No family hx of Cancer, No family hx of DM, No family hx of Heart tom, No family hx of HTN, No family hx ofKidney tom, No family hx of Liver tom, No family hx of Lung tom, No family hx of Stroke Social History Smoker: Non-Smoker Alcohol: Denies ETOH Use Drugs: Denies Drug Use Lives In: Home Constitutional: denies: chills, diaphoresis, fatigue, fever, malaise, sweats, weakness, others EENTM: denies: blurred vision, double vision, ear bleeding, ear discharge, ear drainage, ear pain, ear ringing, eye pain, eye redness, hearing loss, mouth pain, mouth swelling, nasal discharge, nose bleeding, nose congestion, nose pain, photophobia, tearing, throat pain, throat swelling, voice changes, others Respiratory: denies: cough, hemoptysis, orthopnea, SOB at rest, shortness of breath, SOB with excertion, stridor, wheezing, others Cardiovascular: denies: chest pain, dizzy spells, diaphoresis, Dyspnea on exertion, edema, irregular heart beat, left arm pain, lightheadedness, palpitations, PND, syncope, others Gastrointestinal: reports: abdominal pain, nausea, vomiting; denies: abdomen distended, blood streaked bowels, constipated, diarrhea, dysphagia, difficulty swallowing, hematemesis, melena, poor appetite, poor fluid intake, rectal bleeding, rectal pain, others Genitourinary: reports: burning, dysuria, flank pain; denies: abnormal vagina bleeding, dyspareunia, frequency, hematuria, incontinence, pain, , vagina discharge, urgency, others Neurological: reports: headache; denies: dizziness, fainting, left sided numbness, left sided weakness, numbness, paresthesia, pre-existing deficit, right sided numbness, right sided weakness, seizure, speech problems, tingling, tremors, weakness, others Musculoskeletal: denies: back pain, gout, joint pain, joint swelling, muscle pain, muscle stiffness, neck pain, others Integumetry: denies: bruises, change in color, change in hair/nails, dryness, laceration, lesions, lumps, rash, wounds, others Allergic/Immunocompromised: denies: Difficulty Healing, Frequent Infections, Hives, Itching, others Hematologic/Lymphatic: denies: anemia, blood clots, easy bleeding, easy bruising, swollen glands, others Endocrine: denies: excessive hunger, excessive sweating, excessive thirst, excessive urination, flushing, intolerance to cold, intolerance to heat, unexplained weight gain, unexplained weight loss, others Psychiatric: denies: anxiety, bipolar disorder, depression, hopeless, panic disorder, schizophrenia, sleepless, suicidal, others All Other Systems: Reviewed and Negative Physical Exam General Appearance: Moderate Distress, Normal HEENT: Normal ENT Inspection, PERRL/EOMI Neck: Full Range of Motion, Non-Tender, Normal, Normal Inspection Respiratory: Chest Non-Tender, Lungs Clear, No Accessory Muscle Use, No Respiratory Distress, Normal Breath Sounds Cardiovascular: No Edema, No JVD, No Murmur, No Gallop, Normal Peripheral Pulses, Regular Rate/Rhythm Breast Exam: Deferred Gastrointestinal: Diffuse, No Organomegaly, No Pulsatile Mass, Normal Bowel Sounds, Soft Genitalia: Deferred Pelvic: Deferred Rectal: Deferred Extremities: No calf tenderness, Normal capillary refill, Normal inspection, Normal range of motion, Non-tender, No pedal edema Musculoskeletal : Apperance: Normal Neurologic: Alert, privacy attorney II-XII nml as Tested, No Motor Deficits, Normal Affect, Normal Mood, No Sensory Deficits Cerebellar Function: Normal Reflexes: Normal Skin: Dry, Normal Color, Warm Peripheral Pulses: 3+ Radial (R), 3+ Radial (L) Lymphatic: No Adenopathy Was a procedure done? Was a procedure done?: No GI differential Dx Differential Diagnosis: Constipation, Diverticular disease, Esophagitis, Gastritis/PUD, Gastroenteritis X-Ray, Labs, Meds, VS Vital Signs Date Time Temp Pulse Resp B/P (MAP) Pulse Ox O2 Delivery O2 Flow Rate FiO2 09/21/24 10:54 98.8 92 16 118/77 (91) 96 98.8 09/21/24 10:54 92 16 96 Room Air 09/21/24 09:52 99.3 106 17 146/85 (105) 97 Lab Test 09/21/24 10:23 09/21/24 09:35 Range/Units White Blood Count 12.6 H 4.4-10.8 10^3/uL Red Blood Count 4.47 4.0-5.20 10^6/uL Hemoglobin 13.7 12.2-16.2 g/dL Hematocrit 40.5 36.0-46.0 % Mean Corpuscular Volume 90.5 80.0-100.0 fL Mean Corpuscular Hemoglobin 30.5 28.0-32.0 pg Mean Corpuscular Hemoglobin Concent 33.8 32.0-36.0 g/dL Red Cell Distribution Width 13.0 11.8-14.3 % Platelet Count 305 140-450 10^3/uL Mean Platelet Volume 8.1 6.9-10.8 fL Neutrophils (%) (Auto) 75.8 37.0-80.0 % Lymphocytes (%) (Auto) 19.1 10.0-50.0 % Monocytes (%) (Auto) 3.6 0.0-12.0 % Eosinophils (%) (Auto) 1.0 0.0-7.0 % Basophils (%) (Auto) 0.5 0.0-2.0 % Neutrophils # (Auto) 9.5 H 1.6-8.6 10 ^3/uL Lymphocytes # (Auto) 2.4 0.4-5.4 10 ^3/uL Monocytes # (Auto) 0.4 0-1.3 10 ^3/uL Eosinophils # (Auto) 0.1 0-0.8 10 ^3/uL Basophils # (Auto) 0.1 0-0.2 10 ^3/uL Nucleated Red Blood Cells 0.0 % Sodium Level 138 136-145 mmol/L Potassium Level 4.2 3.5-5.1 mmol/L Chloride Level 103 98-107 mmol/L Carbon Dioxide Level 26 20-31 mmol/L Anion Gap 9 5-15 Blood Urea Nitrogen 13 9-23 mg/dL Creatinine 0.93 0.550-1.02 mg/dL Glomerular Filtration Rate Calc 86 >90 mL/min BUN/Creatinine Ratio 14.0 10.0-20.0 Serum Glucose 91 74-106 mg/dL Calcium Level 10.5 H 8.7-10.4 mg/dL Urine Color Yellow Yellow Urine Clarity Clear Clear Urine pH 6.0 5.0-9.0 Urine Specific [place] 1.025 1.001-1.035 Urine Protein 1+ H Negative Urine Ketones Negative Negative Urine Blood Negative Negative /uL Urine Nitrite Negative Negative Urine Bilirubin Negative Negative Urine Urobilinogen Normal Negative mg/dL Urine Leukocyte Esterase Negative Negative /uL Urine RBC <1 0 - 4 /hpf Urine Microscopic WBC 2 0-5 /HPF Urine Squamous Epithelial Cells Few <5 /hpf Urine Bacteria None seen None Seen /hpf Urine Mucus Few None Seen Urine Glucose Normal Normal mg/dL Current Medications Medications (Trade) Dose Ordered Sig/Rubina Route Start Time Stop Time Status Last Admin Acetaminophen/ Hydrocodone Bitart ([place] 10/325MG Tab) 1 tab ONCE ONCE PO 09/21/24 10:15 09/21/24 10:16 DC 09/21/24 10:38 CT Abd/Pel: Findings: Evaluation of vasculature and solid organs is limited due to lack of intravenous contrast use. Lung Bases: Lung bases are clear. Visualized portions of the heart and pericardium are unremarkable. Liver: The liver is normal in size. No focal lesions. Gallbladder and Biliary Tree: The gallbladder is unremarkable. No intrahepatic or extrahepatic biliary ductal dilatation. Spleen: Unremarkable Pancreas: Increased size of cystic mass in the pancreatic head now measuring 2.4 cm previously measuring 1.8 cm. No pancreatic duct dilatation. Adrenal Glands: Unremarkable Kidneys: Left renal atrophy. The right kidney is unremarkable. GI tract: The stomach is grossly normal in appearance. No evidence of small bowel wall thickening or abnormal dilatation to suggest bowel obstruction. Scattered colonic diverticulosis without acute diverticulitis. Normal appendix. Peritoneum/mesentery/retroperitoneum. No evidence of free intraperitoneal air. No ascites. No evidence of suspicious lymphadenopathy. Abdominal Wall: Unremarkable. Vasculature: The visualized abdominal aorta is normal in size and caliber. Evaluation of abdominal and pelvic vessels is limited due to lack of intravenous contrast. Urinary Bladder: Grossly unremarkable for degree of distention. Pelvic Organs: Unremarkable Musculoskeletal: No aggressive focal bony lesions, acute fractures or dislocation. Soft tissues: Fat containing umbilical hernia. IMPRESSION: 1. No evidence of colitis. No bowel obstruction. 2. Increased size of cystic mass in the pancreatic head now measuring 2.4 cm previously measuring 1.[address] cm [address] a prior CT from 2022. MRI of the abdomen with pancreatic protocol using intravenous contrast is recommended. 3. Chronic left renal atrophy. Patient alert. Complaining of abdominal pain. Vitals stable. Answering all questions. Reviewed her previous visit. CT scan of the abdomen reviewed does show cystic mass in the pancreas. Getting bigger than before. Condition abdominal discomfort. She will need be admitted for pain control. Surgical evaluation. Explained to the patient. Continue cardiac monitoring. Time of 1ST Reevaluation: 11:05 Reevaluation 1ST: Unchanged Patient Education/Counseling: Diagnosis, Treatment Family Education/Counseling: No Family Present Additional Information I reviewed the following notes from patient's past medical encounters: 04/30/23 for pancreatitis The following tests were ordered, and results were reviewed by me: CBC, BMP, UA I reviewed and agreed with the following test results read by other providers: None Additional Information was gathered from interviewing the following independent historians: None I discussed treatment and results with medical personnel. Departure 1 Departure Time of Disposition: 15:07 Impression: Primary Impression: Lesion of pancreas Additional Impressions: Nausea Acute abdominal pain Disposition: ADMITTED INPATIENT Admit to: Med Surg Condition: Guarded Critical Care Note Critical Care Time?: No Stability Stability form required: No Heart Score Heart Score: Heart Score Response (Comments) Value History N/A 0 EKG N/A 0 Age N/A 0 Risk Factors N/A 0 Troponin N/A 0 Total 0 I personally scribed for NICOLE MCNAMARA MD ([email or web address]) on 09/21/24 at 10:10. Electronically submitted by Daniel Melendrez ([email or web address]). I personally scribed for NICOLE MCNAMARA MD ([email or web address]) on 09/21/24 at 14:34. Electronically submitted by Daniel Melendrez ([email or web address]). NIOCLE MCNAMARA MD Sep 21, 2024 10:10
[2024-09-21 10:13] LABS: Urine Bacteria None Seen /hpf (None Seen)
[2024-09-21 10:24] LABS: Urine Blood Negative /uL (Negative); Urine Clarity Clear (Clear); Urine Color Yellow (Yellow); Urine Mucus FEW (None Seen); Urine Protein, UAD 1+ (Negative); Urine Specific Gravity 1.025 (1.001-1.035); Urine Squamous Epithelial Cell FEW /hpf (<5); Urine Urobilinogen Normal (Negative); Urine WBC 2 /HPF (0-5)
[2024-09-21] MEDS: HYDROcodone-ACET 10/325MG TAB PO ONE (10:38)
[2024-09-21 10:46] LABS: Basophils # (auto) 0.1 10 ^3/uL (0-0.2); Basophils % (auto) 0.5 % (0.0-2.0); Eosinophils # (auto) 0.1 10 ^3/uL (0-0.8); Hematocrit 40.5 % (36.0-46.0); Hemoglobin 13.7 g/dL (12.2-16.2); Lymphocytes # (auto) 2.4 10 ^3/uL (0.4-5.4); Lymphocytes % (auto) 19.1 % (10.0-50.0); Mean Corpuscular Hemoglobin 30.5 pg (28.0-32.0); Mean Corpuscular Hgb Conc. 33.8 g/dL (32.0-36.0); Mean Corpuscular Volume 90.5 fL (80.0-100.0); Monocytes # (auto) 0.4 10 ^3/uL (0-1.3); Monocytes % (auto) 3.6 % (0.0-12.0); Neutrophils # (auto) 9.5 10 ^3/uL (1.6-8.6); Neutrophils % (auto) 75.8 % (37.0-80.0); Platelet Count (auto) 305 10^3/uL (140-450); Red Blood Cells 4.47 10^6/uL (4.0-5.20); White Blood Cell 12.6 10^3/uL (4.4-10.8)
[2024-09-21 10:58] LABS: Chloride 103 mmol/L (98-107); Potassium 4.2 mmol/L (3.5-5.1); Sodium 138 mmol/L (136-145)
[2024-09-21 10:59] LABS: Anion Gap 9 (5-15); Carbon Dioxide 26 mmol/L (20-31)
[2024-09-21 11:04] LABS: Blood Urea Nitrogen 13 mg/dL (9-23); Glucose 91 mg/dL (74-106)
[2024-09-21 11:08] LABS: Calcium 10.5 mg/dL (8.7-10.4)
--- NOTE | 2024-09-21 13:02 | DVH ---
Exam: CT CT AB PEL WO CON-NO ORAL OR IV History: Colitis Comparison Study: CT scan of the abdomen pelvis performed on 04/30/2023. Technique: Multidetector spiral CT of the abdomen and pelvis was performed from lung bases to pubic s ymphysis. Imaging was performed without intravenous contrast. Coronal and sagittal multiplanar refor mats were obtained from the axial data set by the technologist. Radiation Dose : 1. Abdomen/Pelvis: CTDIvol 6.2 mGy, DLP 319.1 mGy*cm. Findings: Evaluation of vasculature and solid organs is limited due to lack of intravenous contrast use. Lung Bases: Lung bases are clear. Visualized portions of the heart and pericardium are unremarkable. Liver: The liver is normal in size. No focal lesions. Gallbladder and Biliary Tree: The gallbladder is unremarkable. No intrahepatic or extrahepatic bilia ry ductal dilatation. Spleen: Unremarkable Pancreas: Increased size of cystic mass in the pancreatic head now measuring 2.4 cm previously measur ing 1.8 cm. No pancreatic duct dilatation. Adrenal Glands: Unremarkable Kidneys: Left renal atrophy. The right kidney is unremarkable. GI tract: The stomach is grossly normal in appearance. No evidence of small bowel wall thickening or abnormal dilatation to suggest bowel obstruction. Scattered colonic diverticulosis without acute div erticulitis. Normal appendix. Peritoneum/mesentery/retroperitoneum. No evidence of free intraperitoneal air. No ascites. No evidenc e of suspicious lymphadenopathy. Abdominal Wall: Unremarkable. Vasculature: The visualized abdominal aorta is normal in size and caliber. Evaluation of abdominal a nd pelvic vessels is limited due to lack of intravenous contrast. Urinary Bladder: Grossly unremarkable for degree of distention. Pelvic Organs: Unremarkable Musculoskeletal: No aggressive focal bony lesions, acute fractures or dislocation. Soft tissues: Fat containing umbilical hernia. IMPRESSION: 1. No evidence of colitis. No bowel obstruction. 2. Increased size of cystic mass in the pancreatic head now measuring 2.4 cm previously measuring 1.[address] cm [address] a prior CT from 2022. MRI of the abdomen with pancreatic protocol using intravenous contrast i s recommended. 3. Chronic left renal atrophy.
--- NOTE | 2024-09-21 16:26 | DVHHP2 ---
History of Present Illness Reason for Visit: Abdominal pain History of Present Illness The patient was a 29-year-old female presenting to the emergency room with complaints of abdominal pain, fevers, chills, as well as decreased appetite. Upon assessment of the patient, she was found to have tenderness to her right lower quadrant with light palpation. CT scan performed in the emergency room reveals increase in the patient's pancreatic cyst, for which she states that she has had for several years. She denies any epigastric pain. Hepatobiliary: Other (Pancreatic cyst) Renal/: Other (Born with 1 kidney) Past Surgical History: Family History: None Smoke: No ALCOHOL: none Drugs: None Lives: with Family Review of Systems Constitutional: Yes: Fever, Weakness Eyes: No: Pain, Vision change, Conjunctivae inflammation, Eyelid inflammation, Other, Redness ENT: No: Ear pain, Ear discharge, Nose pain, Nose discharge, Nose congestion, Mouth pain, Mouth swelling, Throat pain, Throat swelling, Other Respiratory: No: Cough, Dry, Shortness of breath, SOB with excertion, Wheezing, Hemoptysis, Pleuritic Pain, Sputum, Wheezing, Other Cardiovascular: No: Chest Pain, Palpitations, Orthopnea, Paroxysmal Noc. Dyspnea, Edema, Lt Headedness, Other Gastrointestinal: Abdominal Pain Genitourinary: No Dysuria, No Frequency, No Incontinence, No Hematuria, No Retention, No Other Musculoskeletal: No: other, neck pain, shoulder pain, arm pain, back pain, hand pain, leg pain, foot pain Skin: No: Rash, Lesions, Jaundice, Bruising, Other Neurological: No: Weakness, Numbness, Incoordination, Change in speech, Confusion, Seizures, Other Allergies: Coded Allergies: Diphtheria Toxoid (Verified Allergy, Unknown, 05/10/22) Pertussis Vaccine (Verified Allergy, Unknown, Hives, 05/11/22) Hives and leg atrophy during childhood. Tetanus Toxoids (Verified Allergy, Unknown, 05/10/22) Uncoded Allergies: TDAP (Allergy, Unknown, 01/10/20) Medications Current Medications Medications Dose Ordered Sig/Rubina Route Start Time Stop Time Status Last Admin Dose Admin Ceftriaxone Sodium 50 ml @ 100 mls/hr DAILY@09 IV 09/22/24 09:00 UNV Metronidazole 100 ml @ 100 mls/hr Q8HR IV 09/21/24 22:00 UNV Morphine Sulfate 1 mg Q4HPRN PRN IV 09/21/24 16:30 UNV Acetaminophen/ Hydrocodone Bitart 1 tab Q6HPRN PRN PO 09/21/24 16:30 UNV Exam Vital Signs Vital Signs Date Time Temp Pulse Resp B/P (MAP) Pulse Ox O2 Delivery O2 Flow Rate FiO2 09/21/24 10:54 98.8 92 16 118/77 (91) 96 98.8 09/21/24 10:54 Room Air General Appearance: Alert, Oriented X3, Cooperative, mild distress HEENT: Atraumatic, PERRLA, Mucous membr. moist/pink Respiratory: Clear to auscultation, Normal air movement Cardiovascular: Normal S1, Normal S2 Abdominal: Normal bowel sounds, Other (Tenderness with right lower quadrant.) Extremities: No clubbing, No cyanosis, No edema, Normal pulses, No tenderness/s welling Skin: No rashes, No breakdown Neuro: Normal gait, Normal speech Psych/Mental Status: Mental status NL, Mood NL Labs/Xrays Labs Test 09/21/24 10:23 09/21/24 09:35 Range/Units White Blood Count 12.6 H 4.4-10.8 10^3/uL Red Blood Count 4.47 4.0-5.20 10^6/uL Hemoglobin 13.7 12.2-16.2 g/dL Hematocrit 40.5 36.0-46.0 % Mean Corpuscular Volume 90.5 80.0-100.0 fL Mean Corpuscular Hemoglobin 30.5 28.0-32.0 pg Mean Corpuscular Hemoglobin Concent 33.8 32.0-36.0 g/dL Red Cell Distribution Width 13.0 11.8-14.3 % Platelet Count 305 140-450 10^3/uL Mean Platelet Volume 8.1 6.9-10.8 fL Neutrophils (%) (Auto) 75.8 37.0-80.0 % Lymphocytes (%) (Auto) 19.1 10.0-50.0 % Monocytes (%) (Auto) 3.6 0.0-12.0 % Eosinophils (%) (Auto) 1.0 0.0-7.0 % Basophils (%) (Auto) 0.5 0.0-2.0 % Neutrophils # (Auto) 9.5 H 1.6-8.6 10 ^3/uL Lymphocytes # (Auto) 2.4 0.4-5.4 10 ^3/uL Monocytes # (Auto) 0.4 0-1.3 10 ^3/uL Eosinophils # (Auto) 0.1 0-0.8 10 ^3/uL Basophils # (Auto) 0.1 0-0.2 10 ^3/uL Nucleated Red Blood Cells 0.0 % Sodium Level 138 136-145 mmol/L Potassium Level 4.2 3.5-5.1 mmol/L Chloride Level 103 98-107 mmol/L Carbon Dioxide Level 26 20-31 mmol/L Anion Gap 9 5-15 Blood Urea Nitrogen 13 9-23 mg/dL Creatinine 0.93 0.550-1.02 mg/dL Glomerular Filtration Rate Calc 86 >90 mL/min BUN/Creatinine Ratio 14.0 10.0-20.0 Serum Glucose 91 74-106 mg/dL Calcium Level 10.5 H 8.7-10.4 mg/dL Urine Color Yellow Yellow Urine Clarity Clear Clear Urine pH 6.0 5.0-9.0 Urine Specific [place] 1.025 1.001-1.035 Urine Protein 1+ H Negative Urine Ketones Negative Negative Urine Blood Negative Negative /uL Urine Nitrite Negative Negative Urine Bilirubin Negative Negative Urine Urobilinogen Normal Negative mg/dL Urine Leukocyte Esterase Negative Negative /uL Urine RBC <1 0 - 4 /hpf Urine Microscopic WBC 2 0-5 /HPF Urine Squamous Epithelial Cells Few <5 /hpf Urine Bacteria None seen None Seen /hpf Urine Mucus Few None Seen Urine Glucose Normal Normal mg/dL Assessment/Plan Assessment/Plan Impression: -right lower quadrant pain, rule out appendicitis -pancreatic cyst -leukocytosis, probable sirs Plan: -admit to Medical/Surgical unit -gallbladder ultrasound -antibiotic therapy: Rocephin, azithromycin -pain management -IV fluids -clear liquid diet -NPO after midnight -repeat Labs in a.m. Total time spent with patient discussing and formulating plan of care: 35 minutes. This medical document was created using an electronic medical record system with [employer] system. Although this document has been carefully reviewed, there may still be some phonetic and typographical errors. These areas are purely typographical due to imperfections of the software programs, and do not reflect any compromise in the patient's medical care. Plan discussed with: Patient, Other (RN) My Orders Orders - AURORA LLOYD NP Procedure Category Date Status Time Admit ADMIT 09/21/24 Transmitted 16:15 Oxygen By Nasal RT 09/21/24 Transmitted Cannula 16:15 Ceftriaxone 1gm/50ml PHA 09/22/24 Logged D5w (Rocephin) 09:00 Ceftriaxone 1gm/50ml PHA 09/21/24 Logged D5w (Rocephin) 16:30 Metronidazole PHA 09/21/24 Logged 500mg/100ml (Flagyl 22:00 Morphine Sulfate PHA 09/21/24 Logged Injection 16:30 Hydrocodone-Acet PHA 09/21/24 Transmitted 5/325mg Tab ([place] 16:30 Acetaminophen Tablet PHA 09/21/24 Transmitted (Tylenol Tablet) 16:30 Ondansetron Hcl PHA 09/21/24 Transmitted (Zofran) 16:30 Abdomen Limited US 09/21/24 Logged 16:16 Clear Liq Diet DIET 09/21/24 Transmitted Dinner D5w/Sod Chlo 0.9% Ns PHA 09/21/24 Verified 16:30 Date of Service: Sep 21, 2024 Billing Provider: AURORA LLOYD NP Common Visit Codes: [id number] INP/OBS CARE (HIGH) AURORA LLOYD NP Sep 21, 2024 16:26
[2024-09-21] MEDS: D5W/SOD CHLO 0.9% 1,000 ML IV SCH (16:30)
[2024-09-21] MEDS ORDERED: MORPHINE SULFATE INJ 2 MG/ml SYRG IV PRN (16:30)
[2024-09-21] MEDS ORDERED: HYDROcodone-ACET 5/325MG TAB PO PRN (16:30)
--- NOTE | 2024-09-21 17:25 | DVH ---
INDICATION: rule out appendicitis TECHNIQUE: Multiple real-time sonographic images were obtained of the right upper quadrant. COMPARISON: None FINDINGS: Appendix not identified. No free fluid in the right lower quadrant Impression: Appendix not identified
[2024-09-21] MEDS: cefTRIAXone 1GM/50ML D5W 50 ML IV ONE (19:41)
[2024-09-21] MEDS: ONDANSETRON HCL 4 MG/2 ML VIAL IV ONE (19:41)
[2024-09-21] MEDS: MORPHINE SULFATE 4 MG/ML SYR/VIAL IV ONE (19:42)
[2024-09-21 19:45] VITALS: PULSE 94; RESP 18; O2SAT 100
[2024-09-21] MEDS: metroNIDAZOLE 500MG/100ML 100 ML IV SCH (23:48)
[2024-09-22 07:49] VITALS: PULSE 65; RESP 17; O2SAT 98
[2024-09-22 07:57] LABS: Basophils # (auto) 0 10 ^3/uL (0-0.2); Basophils % (auto) 0.5 % (0.0-2.0); Eosinophils # (auto) 0.3 10 ^3/uL (0-0.8); Eosinophils % (auto) 3.8 % (0.0-7.0); Hemoglobin 13.3 g/dL (12.2-16.2); Lymphocytes % (auto) 27.5 % (10.0-50.0); Mean Corpuscular Hemoglobin 30.3 pg (28.0-32.0); Mean Corpuscular Hgb Conc. 33.4 g/dL (32.0-36.0); Mean Corpuscular Volume 90.7 fL (80.0-100.0); Monocytes # (auto) 0.4 10 ^3/uL (0-1.3); Monocytes % (auto) 5.6 % (0.0-12.0); Neutrophils # (auto) 4.6 10 ^3/uL (1.6-8.6); Neutrophils % (auto) 62.6 % (37.0-80.0); Nucleated Red Blood Cells % 0.1 %; Platelet Count (auto) 277 10^3/uL (140-450); Red Blood Cells 4.41 10^6/uL (4.0-5.20); Red Cell Distribution Width 13.3 % (11.8-14.3); White Blood Cell 7.4 10^3/uL (4.4-10.8)
[2024-09-22 08:00] VITALS: BP 116/61; PULSE 80; RESP 18; TEMP 97.9; O2SAT 98
[2024-09-22 08:17] LABS: Alanine Aminotransferase 22 U/L (7-40); Albumin 4.7 g/dL (3.2-4.8); Alkaline Phosphatase 61 U/L (46-116); Anion Gap 7 (5-15); Aspartate Aminotransferase 16 U/L (13-40); BUN/Creatinine Ratio 11.6 (10.0-20.0); Bilirubin, Total 0.7 mg/dL (0.2-1.0); Blood Urea Nitrogen 11 mg/dL (9-23); Calcium 9.6 mg/dL (8.7-10.4); Carbon Dioxide 26 mmol/L (20-31); Chloride 104 mmol/L (98-107); Glucose 99 mg/dL (74-106); Potassium 4.2 mmol/L (3.5-5.1); Sodium 137 mmol/L (136-145); Total Protein 7.2 g/dL (5.7-8.2)
[2024-09-22 08:31] LABS: Erythrocyte Sedimentation Rate 17 mm/hr (0-20)
[2024-09-22] MEDS: cefTRIAXone 1GM/50ML D5W 50 ML IV SCH (09:16)
[2024-09-22] MEDS: ACETAMINOPHEN 500 MG TAB or CAP PO PRN (09:39)
[2024-09-22] MEDS: ONDANSETRON HCL 4 MG/2 ML VIAL IV PRN (09:39)
--- NOTE | 2024-09-22 12:28 | DVHINCON2 ---
GI Consult Consult Note GI consult note Date of Consultation: 09/1924 Chief Complaint: RLQ pain, pancreatic cystic mass Referring Physician: Monique KU H&P: 29-year-old female presented to emergency room with complains of abdominal pain, fever and chills Patient has complains of RLQ pain, improving at this time Patient has nausea. No vomiting. No diarrhea No recent weight loss Patient diagnosed with pancreatic cyst one year ago Past Medical History: Pancreatic cyst, born with one kidney Past Surgical History: Social History: NO smoking, drinking ETOH and use of illegal drugs. Family History: Noncontributory Review of Systems: Constitutional: no fever, chill, weight loss HEENT: no eye pain, no hearing loss, no oral lesion, no scleral icterus Heart: no chest pain, no chest pressure Lung: no cough, no dyspnea with exertion Abdomen: see HPI Physical exam: General: NAD, AAOX3 Chest: lung nye clear to auscultation Heart: RRR, no murmur Abdomen: non-distended, mild RLQ tenderness to palpation, +BS Labs: Labs Test 09/22/24 07:41 09/21/24 10:23 09/21/24 09:35 Range/Units White Blood Count 7.4 # 4.4-10.8 10^3/uL Red Blood Count 4.41 4.0-5.20 10^6/uL Hemoglobin 13.3 12.2-16.2 g/dL Hematocrit 40.0 36.0-46.0 % Mean Corpuscular Volume 90.7 80.0-100.0 fL Mean Corpuscular Hemoglobin 30.3 28.0-32.0 pg Mean Corpuscular Hemoglobin Concent 33.4 32.0-36.0 g/dL Red Cell Distribution Width 13.3 11.8-14.3 % Platelet Count 277 140-450 10^3/uL Mean Platelet Volume 8.2 6.9-10.8 fL Neutrophils (%) (Auto) 62.6 37.0-80.0 % Lymphocytes (%) (Auto) 27.5 10.0-50.0 % Monocytes (%) (Auto) 5.6 0.0-12.0 % Eosinophils (%) (Auto) 3.8 0.0-7.0 % Basophils (%) (Auto) 0.5 0.0-2.0 % Neutrophils # (Auto) 4.6 1.6-8.6 10 ^3/uL Lymphocytes # (Auto) 2.0 0.4-5.4 10 ^3/uL Monocytes # (Auto) 0.4 0-1.3 10 ^3/uL Eosinophils # (Auto) 0.3 0-0.8 10 ^3/uL Basophils # (Auto) 0 0-0.2 10 ^3/uL Nucleated Red Blood Cells 0.1 % Erythrocyte Sedimentation Rate 17 0-20 mm/hr Sodium Level 137 136-145 mmol/L Potassium Level 4.2 3.5-5.1 mmol/L Chloride Level 104 98-107 mmol/L Carbon Dioxide Level 26 20-31 mmol/L Anion Gap 7 5-15 Blood Urea Nitrogen 11 9-23 mg/dL Creatinine 0.95 0.550-1.02 mg/dL Glomerular Filtration Rate Calc 84 >90 mL/min BUN/Creatinine Ratio 11.6 10.0-20.0 Serum Glucose 99 74-106 mg/dL Calcium Level 9.6 8.7-10.4 mg/dL Total Bilirubin 0.7 0.2-1.0 mg/dL Aspartate Amino Transferase (AST) 16 13-40 U/L Alanine Aminotransferase (ALT) 22 7-40 U/L Alkaline Phosphatase 61 46-116 U/L C-Reactive Protein High Sensitivity 1.17 H <1.0 mg/dL Total Protein 7.2 5.7-8.2 g/dL Albumin 4.7 3.2-4.8 g/dL Lipase 52 12-53 U/L Urine Color Yellow Yellow Urine Clarity Clear Clear Urine pH 6.0 5.0-9.0 Urine Specific [place] 1.025 1.001-1.035 Urine Protein 1+ H Negative Urine Ketones Negative Negative Urine Blood Negative Negative /uL Urine Nitrite Negative Negative Urine Bilirubin Negative Negative Urine Urobilinogen Normal Negative mg/dL Urine Leukocyte Esterase Negative Negative /uL Urine RBC <1 0 - 4 /hpf Urine Microscopic WBC 2 0-5 /HPF Urine Squamous Epithelial Cells Few <5 /hpf Urine Bacteria None seen None Seen /hpf Urine Mucus Few None Seen Urine Glucose Normal Normal mg/dL Imaging: CT abdomen pelvis IMPRESSION: 1. No evidence of colitis. No bowel obstruction. 2. Increased size of cystic mass in the pancreatic head now measuring 2.4 cm previously measuring 1.[address] cm on a prior CT from 2022. MRI of the abdomen with pancreatic protocol using intravenous contrast is recommended. 3. Chronic left renal atrophy. Appendix ultrasound FINDINGS: Appendix not identified. No free fluid in the right lower quadrant Impression: Appendix not identified Assessment: Abdominal pain Pancreatic cystic mass Plan: Discussed with Dr. Faith MRI with contrast with pancreas protocol CA 19-9 EUS recommended on an outpatient basis Surgical consult pending Thank you for this consult Date of Service: Sep 22, 2024 Billing Provider: CITLALY ELIZABETH Common Visit Codes: CONSULT ONLY Consultation Codes: [id number] CONSULT <45MIN CITLALY ELIZABETH Sep 22, 2024 12:28
[2024-09-22] MEDS ORDERED: GADOTERATE MEG 10 MMOL/20ml INJ (0.5MMOL/ml) IV ONE (12:58)
[2024-09-22 13:00] VITALS: BP 116/62; PULSE 102; RESP 17; TEMP 98.6; O2SAT 99
--- NOTE | 2024-09-22 15:18 | DVHDS2 ---
Discharge Summary Date of Admission Sep 21, 2024 at 16:15 Date of Discharge: Sep 22, 2024 Admitting Diagnosis Rule out appendicitis Labs/Diagnostic Data: Laboratory Results Test 09/22/24 07:41 09/21/24 10:23 09/21/24 09:35 White Blood Count 7.4 10^3/uL (4.4-10.8) Red Blood Count 4.41 10^6/uL (4.0-5.20) Hemoglobin 13.3 g/dL (12.2-16.2) Hematocrit 40.0 % (36.0-46.0) Mean Corpuscular Volume 90.7 fL (80.0-100.0) Mean Corpuscular Hemoglobin 30.3 pg (28.0-32.0) Mean Corpuscular Hemoglobin Concent 33.4 g/dL (32.0-36.0) Red Cell Distribution Width 13.3 % (11.8-14.3) Platelet Count 277 10^3/uL (140-450) Mean Platelet Volume 8.2 fL (6.9-10.8) Neutrophils (%) (Auto) 62.6 % (37.0-80.0) Lymphocytes (%) (Auto) 27.5 % (10.0-50.0) Monocytes (%) (Auto) 5.6 % (0.0-12.0) Eosinophils (%) (Auto) 3.8 % (0.0-7.0) Basophils (%) (Auto) 0.5 % (0.0-2.0) Neutrophils # (Auto) 4.6 10 ^3/uL (1.6-8.6) Lymphocytes # (Auto) 2.0 10 ^3/uL (0.4-5.4) Monocytes # (Auto) 0.4 10 ^3/uL (0-1.3) Eosinophils # (Auto) 0.3 10 ^3/uL (0-0.8) Basophils # (Auto) 0 10 ^3/uL (0-0.2) Nucleated Red Blood Cells 0.1 % Erythrocyte Sedimentation Rate 17 mm/hr (0-20) Sodium Level 137 mmol/L (136-145) Potassium Level 4.2 mmol/L (3.5-5.1) Chloride Level 104 mmol/L (98-107) Carbon Dioxide Level 26 mmol/L (20-31) Anion Gap 7 (5-15) Blood Urea Nitrogen 11 mg/dL (9-23) Creatinine 0.95 mg/dL (0.550-1.02) Glomerular Filtration Rate Calc 84 mL/min (>90) BUN/Creatinine Ratio 11.6 (10.0-20.0) Serum Glucose 99 mg/dL (74-106) Calcium Level 9.6 mg/dL (8.7-10.4) Total Bilirubin 0.7 mg/dL (0.2-1.0) Aspartate Amino Transferase (AST) 16 U/L (13-40) Alanine Aminotransferase (ALT) 22 U/L (7-40) Alkaline Phosphatase 61 U/L (46-116) C-Reactive Protein High Sensitivity 1.17 mg/dL (<1.0) Total Protein 7.2 g/dL (5.7-8.2) Albumin 4.7 g/dL (3.2-4.8) Lipase 52 U/L (12-53) Urine Color Yellow (Yellow) Urine Clarity Clear (Clear) Urine pH 6.0 (5.0-9.0) Urine Specific [place] 1.025 (1.001-1.035) Urine Protein 1+ (Negative) Urine Ketones Negative (Negative) Urine Blood Negative /uL (Negative) Urine Nitrite Negative (Negative) Urine Bilirubin Negative (Negative) Urine Urobilinogen Normal mg/dL (Negative) Urine Leukocyte Esterase Negative /uL (Negative) Urine RBC <1 /hpf (0 - 4) Urine Microscopic WBC 2 /HPF (0-5) Urine Squamous Epithelial Cells Few /hpf (<5) Urine Bacteria None seen /hpf (None Seen) Urine Mucus Few (None Seen) Urine Glucose Normal mg/dL (Normal) Other Laboratory Tests 09/22/24 07:41 Brief Hx & Hospital Course: History of Present Illness The patient was a 29-year-old female presenting to the emergency room with complaints of abdominal pain, fevers, chills, as well as decreased appetite. Upon assessment of the patient, she was found to have tenderness to her right lower quadrant with light palpation. CT scan performed in the emergency room reveals increase in the patient's pancreatic cyst, for which she states that she has had for several years. She denies any epigastric pain. Course of hospitalization: Patient had ultrasound of right lower quadrant which was negative for acute appendicitis. Patient was longer has tenderness to her right lower quadrant, as well as negative psoas sign. White blood cell count has improved. GI consultation was obtained regarding patient's pancreatic cyst. MRI of the pancreas was performed which revealed similar cyst to CT scan. Recommendations are to follow up with her PCP within the next one month as well as repeat imaging within six months. ED patient was tolerating oral intake without any issues. Patient will be continued on antibiotic therapy with Levaquin 500 mg p.o. daily x5 days. She was agreeable with discharge plan. All questions answered. Physical examination General: Alert and Oriented x3. No acute distress. Well-nourished. Eyes: EOMI. Anicteric. HENT: Moist mucous membranes. Lungs: Clear to auscultation bilaterally. No accessory muscle use. Cardiovascular: Regular rate and rhythm. No murmur. No JVD. Abdomen: Soft, non-tender and non-distended. No palpable masses. Extremities: No edema. Non-tender. Skin: No rashes or lesions. Warm. Neurologic: No focal neurological deficits. CN II-XII grossly intact, but not individually tested. Psychiatric: Cooperative. Appropriate mood and affect. Total time spent with patient discussing and formulating plan of care: 35 minutes. This medical document was created using an electronic medical record system with [employer] dictation system. Although this document has been carefully reviewed, there may still be some phonetic and typographical errors. These areas are purely typographical due to imperfections of the software programs, and do not reflect any compromise in the patient's medical care. Consults/Reason for consult Gastroenterology: Abdominal pain, pancreatic cyst General surgery: Rule out appendicitis Condition at Discharge: Good Final Diagnosis/Problems List Abdominal pain, pancreatic cyst Secondary diagnosis -pancreatic cyst -leukocytosis, probable sirs Discharge Disposition: Home Discharge Instruct/Medications Diet: Regular Follow Up/Referral: PCP in 1-2 weeks Medications: Levaquin 500 mg p.o. daily 36 Discharge Statement: "Patient was advised to return to the ER or call 911 if any headaches, dizziness, shortness of breath, chest pain, abdominal pain, bleeding, fevers, or worsening of medical condition. Patient was counseled about treatment plan, medications, possible side effects, patientverbalized understanding. All questions were answered to the best of my ability. This discharge took greater then 30 minutes in planning, reviewing documentation, counseling the patient, and discussing with other team members." ASSESSMENT ASSESSMENT Assessment Date of Service: Sep 22, 2024 Billing Provider: AURORA LLOYD NP Common Visit Codes: 79990-QCF/OBS DISCH DAY >30min AURORA LLOYD NP Sep 22, 2024 15:17
--- NOTE | 2024-09-22 16:26 | DVH ---
MRI Abdomen, with and without IV Contrast Exam Date: 09/22/2024 12:50 PM Comparison: CT of the abdomen and pelvis 09/21/2024 History: pancreatic cyst Technique: Multisequence multiplanar MRI images were obtained of the abomen. MRCP including 3D SPACE, Radial 3D slabs and SPACE 3D MIP images 20 mL of clariscan was administered intravenously during this examination. Initial imaging is obtain ed without intravenous contrast. Findings: Liver: The liver is normal in size without focal lesions. Normal liver contour. Spleen: Unremarkable. Pancreas: There is a cystic lesion in the uncinate process of the pancreas measuring up to 24 mm. Gallbladder and ducts: Gallbladder is normal in appearance. The cystic duct, right and left hepatic ducts, common hepatic duct, and common bile ducts are unremarkable. The pancreatic duct is within n ormal limits. Adrenal glands: Unremarkable. Kidneys: Left kidney is atrophic. Right kidney is enlarged. No hydronephrosis. Irregular cystic stru ctures in the upper pole of the right kidney are noted measuring up to 27 mm. Visualized bowel: Grossly unremarkable. Vasculature: Unremarkable. Lymphadenopathy: No evidence for lymphadenopathy. Ascites: Absent. Musculoskeletal: Bone marrow signal is normal. IMPRESSION: 1. 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 Recommend follow-up MRI of the abdomen in 6 months. Atrophic left kidney. Hypertrophy of the righ t kidney with irregular cystic structures in the upper pole measuring up to 27 mm could represent cys ts. Attention on follow-up is recommended. HS:Nirmala
[2024-09-22 16:45] VITALS: BP 122/71; PULSE 101; RESP 18; TEMP 98.5; O2SAT 97
[2024-09-22] MEDS ORDERED: LEVO500T91 PO (17:05)
[2024-09-22 18:47] VITALS: BP 122/71; PULSE 101; RESP 16; TEMP 36.9; O2SAT 97
== END 2024-09-22 19:30 | disposition home or self-care (01) | DRG 282 ==
LOC: ER 09:20 → OVERFLOW 16:15 → EAST 09-22 10:43
PROVIDERS: ADMIT Nurse Practitioner Acute Care; ATTEND Nurse Practitioner Acute Care
DX: K86.2 Cyst of pancreas (principal); R65.10 Systemic inflammatory response syndrome (SIRS) of non-infectious origin without acute organ dysfunction; D72.829 Elevated white blood cell count, unspecified; Z79.899 Other long term (current) drug therapy; Z88.8 Allergy status to other drugs, medicaments and biological substances
CPT/HCPCS: 36415; 74176; 74183; 76705; 80048; 80053; 81001; 83690; 85025; 85652; 86141; 86301; G0378; J2405; J3490

== ENCOUNTER 2024-11-26 07:19 | Emergency (ER) | payer MEDICAID ==
[~2024-11-26] VITALS: Ht 154.9 cm; Wt 67.7 kg
[~2024-11-26 07:19] MED LIST changes: -CEPH500T PO; -DOCU-94 PO; -FERR-7 PO; -HYDR-4902 PO; -IBUP-1456 PO; +LEVO500T91 PO; -PREN-96 OR
[2024-11-26 08:01] VITALS: BP 122/77; PULSE 111; RESP 16; TEMP 98.9; O2SAT 100
--- NOTE | 2024-11-26 08:12 | ED.PDOC ---
History of Present Illness(SKN HPI Comments A 29 YEAR OLD FEMALE PRESENTS TO THE ED WITH COMPLAINT OF RASH. PATIENT STATES SHE BEGAN TO EXPERIENCE A GENERALIZED BODY RASH WITH ITCHING YESTERDAY MORNING. PATIENT IS CONCERNED SHE MAY BE HAVING AN ALLERGIC REACTION SHE STATES THAT SHE STARTED USING A NEW LAUNDRY DETERGENT RECENTLY. PATIENT DENIES FEVER, CHILLS, SHORTNESS OF BREATH, CHEST PAIN, ABDOMINAL PAIN, NAUSEA, VOMITING, HEADACHE, OR OTHER COMPLAINTS. NO OTHER SYMPTOMS OR MODIFYING FACTORS AT THIS TIME. PATIENT IS ALERT, ORIENTED X 4, AND HAS STEADY GAIT. Chief Complaint: Allergic Reaction Time Seen by MD: 07:35 Primary Care Provider: none History of Present Illness: Nurses Notes, Medications, Allergies Allergies: Coded Allergies: Diphtheria Toxoid (Verified Allergy, Unknown, 05/10/22) Pertussis Vaccine (Verified Allergy, Unknown, Hives, 05/11/22) Hives and leg atrophy during childhood. Tetanus Toxoids (Verified Allergy, Unknown, 05/10/22) Uncoded Allergies: TDAP (Allergy, Unknown, 01/10/20) Home Meds Active Scripts Hydroxyzine Pamoate (Vistaril) 25 Mg Cap, 1 CAP PO BID, #30 CAP Prov:TEN ANN 11/26/24 Prednisone (Prednisone) 20 Mg Tab, 60 MG PO DAILY, #24 TAB Prov:TEN ANN 11/26/24 Levofloxacin Hemihydrate (LEVAQUIN 500 MG) 500 Mg Tab, 1 TAB PO DAILY for 4 Days, #4 TAB Prov:AURORA LLOYD NP 09/22/24 Information Source: Patient Mode of Arrival: Ambulatory Severity: Moderate Timing: Days Duration: Since onset, Days Prehospital treatment: None Location: Generalized Mechanism: Spontaneous Onset Developed: Pruritus, Rash Occurence: Indoors Object: None Condition of Object: None Retained Foreign Body: No Wound Type: None Immunization Status of Animal: NA Tetanus: Unknown History of: None Associated Signs and Symptoms: Redness Past Medical History PAST MEDICAL HISTORY: UTI'S 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 Family History Family History: Reviewed,noncontributory to illness, No family hx of Cancer, No family hx of DM, No family hx of Heart tom, No family hx of HTN, No family hx ofKidney tom, No family hx of Liver tom, No family hx of Lung tom, No family hx of Stroke Social History Smoker: Non-Smoker Alcohol: Denies ETOH Use Drugs: Denies Drug Use Lives In: Home Constitutional: denies: chills, diaphoresis, fatigue, fever, malaise, sweats, weakness, others EENTM: denies: blurred vision, double vision, ear bleeding, ear discharge, ear drainage, ear pain, ear ringing, eye pain, eye redness, hearing loss, mouth pain, mouth swelling, nasal discharge, nose bleeding, nose congestion, nose pain, photophobia, tearing, throat pain, throat swelling, voice changes, others Respiratory: denies: cough, hemoptysis, orthopnea, SOB at rest, shortness of breath, SOB with excertion, stridor, wheezing, others Cardiovascular: denies: chest pain, dizzy spells, diaphoresis, Dyspnea on exertion, edema, irregular heart beat, left arm pain, lightheadedness, palpitations, PND, syncope, others Gastrointestinal: denies: abdomen distended, abdominal pain, blood streaked bowels, constipated, diarrhea, dysphagia, difficulty swallowing, hematemesis, me zo, nausea, poor appetite, poor fluid intake, rectal bleeding, rectal pain, vomiting, others Genitourinary: denies: abnormal vagina bleeding, burning, dyspareunia, dysuria, flank pain, frequency, hematuria, incontinence, pain, , vagina discharge, urgency, others Neurological: denies: dizziness, fainting, headache, left sided numbness, left sided weakness, numbness, paresthesia, pre-existing deficit, right sided numbness, right sided weakness, seizure, speech problems, tingling, tremors, weakness, others Musculoskeletal: denies: back pain, gout, joint pain, joint swelling, muscle pain, muscle stiffness, neck pain, others Integumetry: reports: rash; denies: bruises, change in color, change in hair/nails, dryness, laceration, lesions, lumps, wounds, others Allergic/Immunocompromised: reports: Hives, Itching; denies: Difficulty Heali ng, Frequent Infections, others Hematologic/Lymphatic: denies: anemia, blood clots, easy bleeding, easy br uising, swollen glands, others Endocrine: denies: excessive hunger, excessive sweating, excessive thirst, excessive urination, flushing, intolerance to cold, intolerance to heat, unexplained weight gain, unexplained weight loss, others Psychiatric: denies: anxiety, bipolar disorder, depression, hopeless, panic disorder, schizophrenia, sleepless, suicidal, others All Other Systems: Reviewed and Negative Physical Exam General Appearance: No Apparent Distress, Normal HEENT: Normal ENT Inspection, PERRL/EOMI, Pharynx Normal, TMs Normal Neck: Full Range of Motion, Non-Tender, Normal, Normal Inspection Respiratory: Chest Non-Tender, Lungs Clear, No Accessory Muscle Use, No Respiratory Distress, Normal Breath Sounds Cardiovascular: No Edema, No JVD, No Murmur, No Gallop, Normal Peripheral Pulses, Regular Rate/Rhythm Breast Exam: Deferred Gastrointestinal: No Organomegaly, Non Tender, No Pulsatile Mass, Normal Bowel Sounds, Soft Genitalia: Deferred Pelvic: Deferred Rectal: Deferred Extremities: No calf tenderness, Normal capillary refill, Normal inspection, Normal range of motion, Non-tender, No pedal edema Musculoskeletal : Apperance: Normal Neurologic: Alert, certified adaptive physical educator II-XII nml as Tested, No Motor Deficits, Normal Affect, Normal Mood, No Sensory Deficits Cerebellar Function: Normal Reflexes: Normal Skin: Dry, Rash (ERYTHEMA SKIN RASH WITH HIVES ON UPPER AND LOWER BODY, NO TENDERNESS, SWELLING AND OPEN WOUND. ), Warm Peripheral Pulses: 2+ carotid (R), 2+ carotid (L) Lymphatic: No Adenopathy Was a procedure done? Was a procedure done?: No Differential Diagnosis (INTG) Differential Diagnosis: N/A Differential Diagnosis: Atopic dermatitis, Contact Dermatitis, Tinea, Urticaria, Other (ALLERGIC REACTION) X-Ray, Labs, Meds, VS Vital Signs Date Time Temp Pulse Resp B/P (MAP) Pulse Ox O2 Delivery O2 Flow Rate FiO2 11/26/24 08:01 111 16 100 Room Air 11/26/24 08:01 98.9 111 17 122/77 (92) 100 98.9 11/26/24 07:36 99.5 120 16 126/78 (94) 100 99.5 11/26/24 07:36 16 100 Room Air* 0 21 Current Medications Medications (Trade) Dose Ordered Sig/Rubina Route Start Time Stop Time Status Last Admin Methylprednisolone Sodium Succinate (Solu Medrol) 125 mg ONCE ONCE IM 11/26/24 08:15 11/26/24 08:16 DC 11/26/24 08:17 Epinephrine HCl 0.3 mg ONCE ONCE IM 11/26/24 08:15 11/26/24 08:16 DC 11/26/24 08:17 Diphenhydramine HCl (Benadryl Injection) 50 mg ONCE ONCE IM 11/26/24 08:45 11/26/24 08:46 DC 11/26/24 08:52 X-Ray, Labs, Meds, VS Comment EXTERNAL MEDICAL RECORDS REVIEWED: [NONE] INDEPENDENT HISTORIANS: [NONE] SOCIAL DETERMINANTS OF HEALTH: [NONE] LABS ORDERED: NONE REVIEWED AND INTERPRETED RESULTS: NONE IMAGING ORDERED: NONE TREATMENTS ORDERED: EPINEPHRINE 0.3 MG IM, SOLU-MEDROL 125 MG IM AND BENADRYL 50MG IM PROCEDURES PERFORMED: NONE CRITICAL CARE TIME: NONE I HAVE DISCUSSED THE PATIENT WITH THE ATTENDING PHYSICIAN DR. FRANCO AND SHE AGREES WITH THE PATIENT'S PLAN OF CARE AND DISPOSITION. BASED ON HISTORY OF PRESENT ILLNESS, AND PHYSICAL EXAM, PATIENT WILL BE DISCHARGED HOME. DISCUSSED PLAN FOR DISCHARGE HOME WITH RX [PREDNISONE AND VISTARIL 25MG]. MEDICATION WARNINGS GIVEN. SHARED DECISION MAKING: PATIENT INSTRUCTED TO FOLLOW UP WITH PRIMARY CARE PROVIDER IN 1-2 DAYS FOR RE-EVALUATION OF SYMPTOMS. PATIENT VERBALIZES UNDERSTANDING TO RETURN TO ED FOR NEW OR WORSENING SYMPTOMS OR IF FOLLOW UP WITH PCP CANNOT BE OBTAINED. PATIENT FEELS COMFORTABLE GOING HOME AT THIS TIME. ALL QUESTIONS ADDRESSED AT TIME OF DISCHARGE. Time of 1ST Reevaluation: 09:07 Reevaluation 1ST: Improved Patient Education/Counseling: Diagnosis, Treatment, Need For Follow Up Family Education/Counseling: Diagnosis, Treatment, Need For Follow Up Medical Screening: No EMC Exist At This Time Departure 1 Departure Time of Disposition: 09:20 Impression: Primary Impression: Allergic reaction Qualified Codes: T78.40XA - Allergy, unspecified, initial encounter Disposition: HOME / SELF CARE / HOMELESS Condition: Stable Additional Instructions: FOLLOW-UP WITH PCP IN 1 TO 2 DAYS. TAKE MEDICATIONS PRESCRIBED. RETURN TO ED FOR ANY NEW OR WORSENING SYMPTOMS. e-Prescriptions Hydroxyzine Pamoate (Vistaril) 25 Mg Cap 1 CAP PO BID, #30 CAP Prov: TEN ANN 11/26/24 Prednisone (Prednisone) 20 Mg Tab 60 MG PO DAILY, #24 TAB Prov: TEN ANN 11/26/24 Discharged With: Self, Relative Critical Care Note Critical Care Time?: No Stability Stability form required: No I personally scribed for TEN ANN ([email or web address]) on 11/26/24 at 08:12. Elect ronically submitted by Jack Hemphill ([email or web address]). TEN ANN Nov 26, 2024 08:12
[2024-11-26] MEDS: methylPREDNISolone SOD SUCC 125 MG/2 ML VL IM ONE (08:17)
[2024-11-26] MEDS: EPINEPHrine HCL 1 MG/1 ML AMP IM ONE (08:17)
[2024-11-26] MEDS ORDERED: HYDR25CA PO ×2 (08:28)
[2024-11-26] MEDS ORDERED: PRED20TA2 PO ×2 (08:28)
[2024-11-26] MEDS: diphenhdrAMINE HCL 50 MG/1 ML VL IM ONE (08:52)
== END 2024-11-26 09:38 | disposition home or self-care (01) ==
LOC: ER 07:19
DX: T78.49XA Other allergy, initial encounter (principal); Z87.440 Personal history of urinary (tract) infections; Z98.890 Other specified postprocedural states; Z88.7 Allergy status to serum and vaccine; Z88.8 Allergy status to other drugs, medicaments and biological substances; X58.XXXA Exposure to other specified factors, initial encounter
CPT/HCPCS: 96372; 99284; J0171; J1200; J2919

== ENCOUNTER 2024-11-27 08:41 | Inpatient (IN) | payer MEDICAID ==
[~2024-11-27] VITALS: Ht 154.9 cm; Wt 73.1 kg
[~2024-11-27 08:41] MED LIST changes: +HYDR25CA PO; +PRED20TA2 PO
--- NOTE | 2024-11-27 09:07 | ED.PDOC ---
History of Present Illness(SKN HPI Comments A 29 YEAR OLD FEMALE PRESENTS TO THE ED WITH COMPLAINT OF ALLERGIC REACTION. PATIENT STATES SHE HAS BEEN EXPERIENCING A GENERALIZED BODY RASH FOR THE PAST 2 DAYS. PATIENT REPORTS SHE CAME TO THIS ED YESTERDAY FOR THE SAME COMPLAINT WHERE SHE WAS GIVEN AN EPINEPHRINE INJECTION, BENADRYL INJECTION, AND SOLU-MEDROL INJECTION AND WAS PRESCRIBED STEROIDS, WHICH IMPROVED HER RASH FOR A SHORT PERIOD OF TIME, BUT NOTES HER RASH CAME BACK. PATIENT DENIES FEVER, CHILLS, SHORTNESS OF BREATH, CHEST PAIN, ABDOMINAL PAIN, NAUSEA, VOMITING, HEADACHE, OR OTHER COMPLAINTS. NO OTHER SYMPTOMS OR MODIFYING FACTORS AT THIS TIME. PATIENT IS ALERT, ORIENTED X 4, AND HAS STEADY GAIT. Chief Complaint: Allergic Reaction Time Seen by MD: 08:47 Primary Care Provider: NONE History of Present Illness: Nurses Notes, Medications, Allergies Allergies: Coded Allergies: Diphtheria Toxoid (Verified Allergy, Unknown, 05/10/22) Pertussis Vaccine (Verified Allergy, Unknown, Hives, 05/11/22) Hives and leg atrophy during childhood. Tetanus Toxoids (Verified Allergy, Unknown, 05/10/22) Uncoded Allergies: TDAP (Allergy, Unknown, 01/10/20) Home Meds Active Scripts Hydroxyzine Pamoate (Vistaril) 25 Mg Cap, 1 CAP PO BID, #30 CAP Prov:TEN ANN 11/26/24 Prednisone (Prednisone) 20 Mg Tab, 60 MG PO DAILY, #24 TAB Prov:TEN ANN 11/26/24 Levofloxacin Hemihydrate (LEVAQUIN 500 MG) 500 Mg Tab, 1 TAB PO DAILY for 4 Days, #4 TAB Prov:AURORA LLOYD NP 09/22/24 Information Source: Patient Mode of Arrival: Ambulatory Severity: Moderate Timing: Days Duration: Since onset, Days Prehospital treatment: None Location: Generalized Mechanism: Spontaneous Onset Developed: Rash Occurence: Indoors Object: None Condition of Object: None Retained Foreign Body: No Wound Type: None Immunization Status of Animal: NA Tetanus: Unknown History of: None Associated Signs and Symptoms: Redness, Swelling Past Medical History PAST MEDICAL HISTORY: UTI'S Surgical History: PENOLOGY PROFESSOR History: No Pertinent PENOLOGY PROFESSOR History Family History Family History: Reviewed,noncontributory to illness, No family hx of Cancer, No family hx of DM, No family hx of Heart tom, No family hx of HTN, No family hx ofKidney tom, No family hx of Liver tom, No family hx of Lung tom, No family hx of Stroke Social History Smoker: Non-Smoker Alcohol: Denies ETOH Use Drugs: Denies Drug Use Lives In: Home Constitutional: denies: chills, diaphoresis, fatigue, fever, malaise, sweats, weakness, others EENTM: denies: blurred vision, double vision, ear bleeding, ear discharge, ear drainage, ear pain, ear ringing, eye pain, eye redness, hearing loss, mouth pain, mouth swelling, nasal discharge, nose bleeding, nose congestion, nose pain, photophobia, tearing, throat pain, throat swelling, voice changes, others Respiratory: denies: cough, hemoptysis, orthopnea, SOB at rest, shortness of breath, SOB with excertion, stridor, wheezing, others Cardiovascular: denies: chest pain, dizzy spells, diaphoresis, Dyspnea on exertion, edema, irregular heart beat, left arm pain, lightheadedness, palpitations, PND, syncope, others Gastrointestinal: denies: abdomen distended, abdominal pain, blood streaked bowels, constipated, diarrhea, dysphagia, difficulty swallowing, hematemesis, melena, nausea, poor appetite, poor fluid intake, rectal bleeding, rectal pain, vomiting, others Genitourinary: denies: abnormal vagina bleeding, burning, dyspareunia, dysuria, flank pain, frequency, hematuria, incontinence, pain, , vagina discharge, urgency, others Neurological: denies: dizziness, fainting, headache, left sided numbness, left sided weakness, numbness, paresthesia, pre-existing deficit, right sided numbness, right sided weakness, seizure, speech problems, tingling, tremors, weakness, others Musculoskeletal: denies: back pain, gout, joint pain, joint swelling, muscle pain, muscle stiffness, neck pain, others Integumetry: reports: lumps, rash; denies: bruises, change in color, change in hair/nails, dryness, laceration, lesions, wounds, others Allergic/Immunocompromised: reports: Hives, Itching; denies: Difficulty Healing, Frequent Infections, others Hematologic/Lymphatic: denies: anemia, blood clots, easy bleeding, easy bruising, swollen glands, others Endocrine: denies: excessive hunger, excessive sweating, excessive thirst, excessive urination, flushing, intolerance to cold, intolerance to heat, unexplained weight gain, unexplained weight loss, others Psychiatric: denies: anxiety, bipolar disorder, depression, hopeless, panic disorder, schizophrenia, sleepless, suicidal, others All Other Systems: Reviewed and Negative Physical Exam General Appearance: No Apparent Distress, Normal HEENT: Normal ENT Inspection, PERRL/EOMI, Pharynx Normal, TMs Normal Neck: Full Range of Motion, Non-Tender, Normal, Normal Inspection Respiratory: Chest Non-Tender, Lungs Clear, No Accessory Muscle Use, No Respiratory Distress, Normal Breath Sounds Cardiovascular: No Edema, No JVD, No Murmur, No Gallop, Normal Peripheral Pulses, Regular Rate/Rhythm Breast Exam: Deferred Gastrointestinal: No Organomegaly, Non Tender, No Pulsatile Mass, Normal Bowel Sounds, Soft Genitalia: Deferred Pelvic: Deferred Rectal: Deferred Extremities: No calf tenderness, Normal capillary refill, Normal inspection, Normal range of motion, Non-tender, No pedal edema Musculoskeletal : Apperance: Normal Neurologic: Alert, fire coordinator II-XII nml as Tested, No Motor Deficits, Normal Affect, Normal Mood, No Sensory Deficits Cerebellar Function: Normal Reflexes: Normal Skin: Dry, Rash (ERYTHEMA SKIN RASH WITH HIVES ON UPPER AND LOW BODY, MILD SWELLING, NO OPEN WOUND SEEN. ), Warm Peripheral Pulses: 2+ carotid (R), 2+ carotid (L) Lymphatic: No Adenopathy Was a procedure done? Was a procedure done?: No Differential Diagnosis (INTG) Differential Diagnosis: N/A Differential Diagnosis: Atopic dermatitis, Contact Dermatitis, Tinea, Urticaria, Other (ALLERGIC REACTION) Differential Diagnosis: N/A Abscess: N/A Differential Diagnosis: N/A X-Ray, Labs, Meds, VS Vital Signs Date Time Temp Pulse Resp B/P (MAP) Pulse Ox O2 Delivery O2 Flow Rate FiO2 11/27/24 09:32 98.1 103 16 128/77 (94) 98 98.1 11/27/24 09:32 103 16 98 Room Air 11/27/24 08:54 98.3 136 18 130/83 (99) 98 98.3 Lab Test 11/27/24 10:15 11/27/24 09:27 11/27/24 09:18 Range/Units White Blood Count 13.9 H 4.4-10.8 10^3/uL Red Blood Count 4.58 4.0-5.20 10^6/uL Hemoglobin 14.1 12.2-16.2 g/dL Hematocrit 41.7 36.0-46.0 % Mean Corpuscular Volume 91.1 80.0-100.0 fL Mean Corpuscular Hemoglobin 30.9 28.0-32.0 pg Mean Corpuscular Hemoglobin Concent 33.9 32.0-36.0 g/dL Red Cell Distribution Width 13.3 11.8-14.3 % Platelet Count 289 140-450 10^3/uL Mean Platelet Volume 9.0 6.9-10.8 fL Neutrophils (%) (Auto) 93.4 H 37.0-80.0 % Lymphocytes (%) (Auto) 4.5 L 10.0-50.0 % Monocytes (%) (Auto) 2.0 0.0-12.0 % Eosinophils (%) (Auto) 0.0 0.0-7.0 % Basophils (%) (Auto) 0.1 0.0-2.0 % Neutrophils # (Auto) 12.9 H 1.6-8.6 10 ^3/uL Lymphocytes # (Auto) 0.6 0.4-5.4 10 ^3/uL Monocytes # (Auto) 0.3 0-1.3 10 ^3/uL Eosinophils # (Auto) 0 0-0.8 10 ^3/uL Basophils # (Auto) 0 0-0.2 10 ^3/uL Nucleated Red Blood Cells 0.0 % Sodium Level 137 136-145 mmol/L Potassium Level 3.6 3.5-5.1 mmol/L Chloride Level 105 98-107 mmol/L Carbon Dioxide Level 19 L 20-31 mmol/L Anion Gap 13 5-15 Blood Urea Nitrogen 18 9-23 mg/dL Creatinine 1.10 H 0.550-1.02 mg/dL Glomerular Filtration Rate Calc 71 >90 mL/min BUN/Creatinine Ratio 16.4 10.0-20.0 Serum Glucose 196 H 74-106 mg/dL Calcium Level 9.7 8.7-10.4 mg/dL Urine Color Light-yellow Yellow Urine Clarity Clear Clear Urine pH 6.0 5.0-9.0 Urine Specific [place] 1.022 1.001-1.035 Urine Protein Trace H Negative Urine Ketones Negative Negative Urine Blood Negative Negative /uL Urine Nitrite Negative Negative Urine Bilirubin Negative Negative Urine Urobilinogen Normal Negative mg/dL Urine Leukocyte Esterase Negative Negative /uL Urine RBC 1 0 - 4 /hpf Urine Microscopic WBC 1 0-5 /HPF Urine Squamous Epithelial Cells Few <5 /hpf Urine Bacteria Few H None Seen /hpf Urine Glucose Trace Normal mg/dL Urine Test Negative Negative Urine Opiates Screen Neg NEGATIVE Urine Fentanyl Screen Neg NEGATIVE Urine Barbiturates Screen Neg NEGATIVE Urine Phencyclidine Screen Neg NEGATIVE Urine Amphetamines Screen Neg NEGATIVE Urine Benzodiazepines Screen Neg NEGATIVE Urine Cocaine Screen Neg NEGATIVE Urine Cannabinoids Screen Neg NEGATIVE Current Medications Medications (Trade) Dose Ordered Sig/Rubina Route Start Time Stop Time Status Last Admin Methylprednisolone Sodium Succinate (Solu Medrol) 125 mg ONCE ONCE IV 11/27/24 09:00 11/27/24 09:02 DC 11/27/24 09:20 Diphenhydramine HCl (Benadryl Injection) 50 mg ONCE ONCE IV 11/27/24 09:00 11/27/24 09:02 DC 11/27/24 09:20 Epinephrine HCl 0.3 mg ONCE ONCE IM 11/27/24 09:00 11/27/24 09:02 DC 11/27/24 09:18 Famotidine (Pepcid Injection) 20 mg ONCE ONCE IV 11/27/24 09:00 11/27/24 09:02 DC 11/27/24 09:20 Sodium Chloride 1,000 ml @ 1,000 mls/hr Q1H ONCE IV 11/27/24 09:15 11/27/24 10:14 DC 11/27/24 09:18 X-Ray, Labs, Meds, VS Comment EXTERNAL MEDICAL RECORDS REVIEWED: [NONE] INDEPENDENT HISTORIANS: [NONE] SOCIAL DETERMINANTS OF HEALTH: [NONE] LABS ORDERED: CBC, BMP, UA, UDS, URINE REVIEWED AND INTERPRETED RESULTS: IMAGING ORDERED: NONE TREATMENTS ORDERED: NS 1 L IV, PEPCID 20 MG IV, BENADRYL 50 MG IV, SOLU-MEDROL 125 MG IV, EPINEPHRINE 0.3 MG IM PROCEDURES PERFORMED: NONE CRITICAL CARE TIME: NONE I HAVE DISCUSSED THE PATIENT WITH THE ATTENDING PHYSICIAN DR. PARR AND HE AGREES WITH THE PATIENT'S PLAN OF CARE. UPON MY PHYSICAL EXAMINATION, THE PATIENT HAD AN ERYTHEMATOUS URTICARIA TYPE RASH NOTED ACROSS HER BODY CONSISTENT WITH AN ACUTE ALLERGIC REACTION NO OPEN WOUNDS NOTED OR SIGNS OF INFECTION. DUE TO THE FACT THAT THE PATIENT WAS SEEN IN THIS ED YESTERDAY FOR THE SAME COMPLAINT AND THERE HAS BEEN NO IMPROVEMENT IN HER SYMPTOMS DESPITE MULTIPLE TREATMENTS, I HAVE DETERMINED THE PATIENT SHOULD BE ADMITTED FOR FURTHER TREATMENT AND EVALUATION OF HER ALLERGIC REACTION. THE ON-CALL HOSPITALIST WILL BE CONTACTED FOR ADMISSION OF THIS PATIENT. Time of 1ST Reevaluation: 10:18 Reevaluation 1ST: Unchanged Time of 2ND Reevaluation: 11:42 Reevaluation 2ND: Unchanged Patient Education/Counseling: Diagnosis, Treatment Family Education/Counseling: Diagnosis, Treatment Departure 1 Departure Time of Disposition: 11:22 Impression: Primary Impression: Severe allergic reaction Qualified Codes: T78.40XD - Allergy, unspecified, subsequent encounter Additional Impressions: Urticaria Failure of outpatient treatment Disposition: ADMITTED INPATIENT Condition: Serious Critical Care Note Critical Care Time?: No Stability Stability form required: No Unstable for transfer: Requires medication, ED Physician Assesment, Possible rapid decline I personally scribed for TEN ANN ([email or web address]) on 11/27/24 at 09:07. Electronically submitted by Jack Hemphill ([email or web address]). I personally scribed for TEN ANN ([email or web address]) on 11/27/24 at 09:55. Electronically submitted by Jack Hemphill ([email or web address]). TEN ANN Nov 27, 2024 09:07
[2024-11-27] MEDS: EPINEPHrine HCL 1 MG/1 ML AMP IM ONE (09:18)
[2024-11-27] MEDS: SODIUM CHLORIDE 0.9% 1,000 ML IV ONE (09:18)
[2024-11-27] MEDS: diphenhdrAMINE HCL 50 MG/1 ML VL IV ONE (09:20)
[2024-11-27] MEDS: methylPREDNISolone SOD SUCC 125 MG/2 ML VL IV ONE (09:20)
[2024-11-27] MEDS: FAMOTIDINE (10MG/ML) 2ML VL IV ONE (09:20)
[2024-11-27 09:56] LABS: Chloride 105 mmol/L (98-107); Potassium 3.6 mmol/L (3.5-5.1); Sodium 137 mmol/L (136-145)
[2024-11-27 09:57] LABS: Anion Gap 13 (5-15)
[2024-11-27 09:58] LABS: Calcium 9.7 mg/dL (8.7-10.4)
[2024-11-27 10:00] LABS: Urine Bacteria FEW /hpf (None Seen); Urine Blood Negative /uL (Negative); Urine Clarity Clear (Clear); Urine Color Light-Yellow (Yellow); Urine Protein, UAD TRACE (Negative); Urine Specific Gravity 1.022 (1.001-1.035); Urine Squamous Epithelial Cell FEW /hpf (<5); Urine Urobilinogen Normal (Negative); Urine WBC 1 /HPF (0-5)
[2024-11-27 10:03] LABS: BUN/Creatinine Ratio 16.4 (10.0-20.0); Blood Urea Nitrogen 18 mg/dL (9-23)
[2024-11-27 10:06] LABS: Carbon Dioxide 19 mmol/L (20-31); Glucose 196 mg/dL (74-106)
[2024-11-27 10:14] LABS: Amphetamine Screen, Urine Neg (NEGATIVE); Barbiturate Scree,Urine Neg (NEGATIVE); Benzodiazephine Screen, Urine Neg (NEGATIVE); Cannabinoid Screen, Urine Neg (NEGATIVE); Cocaine Screen, Urine Neg (NEGATIVE); Opiate Scree,Urine Neg (NEGATIVE); Phencyclidine Screen, Urine Neg (NEGATIVE)
[2024-11-27 11:04] LABS: Basophils # (auto) 0 10 ^3/uL (0-0.2); Basophils % (auto) 0.1 % (0.0-2.0); Eosinophils # (auto) 0 10 ^3/uL (0-0.8); Hematocrit 41.7 % (36.0-46.0); Hemoglobin 14.1 g/dL (12.2-16.2); Lymphocytes # (auto) 0.6 10 ^3/uL (0.4-5.4); Lymphocytes % (auto) 4.5 % (10.0-50.0); Mean Corpuscular Hemoglobin 30.9 pg (28.0-32.0); Mean Corpuscular Hgb Conc. 33.9 g/dL (32.0-36.0); Mean Corpuscular Volume 91.1 fL (80.0-100.0); Monocytes # (auto) 0.3 10 ^3/uL (0-1.3); Neutrophils # (auto) 12.9 10 ^3/uL (1.6-8.6); Neutrophils % (auto) 93.4 % (37.0-80.0); Platelet Count (auto) 289 10^3/uL (140-450); Red Blood Cells 4.58 10^6/uL (4.0-5.20); Red Cell Distribution Width 13.3 % (11.8-14.3); White Blood Cell 13.9 10^3/uL (4.4-10.8)
--- NOTE | 2024-11-27 12:06 | DVHHP2 ---
History of Present Illness Reason for Visit: allergic reaction History of Present Illness 29-year-old female with a history of , solitary kidney, and recurrent UTIs, presenting with a generalized rash and throat tightness ongoing for 2 days.She was seen in the ED two days ago for similar symptoms and received epinephrine, Benadryl, Pepcid, and prednisone for presumed allergic reaction. Despite treatment, she continues to have a diffuse, itchy rash with ongoing sensations of throat tightness and chest heaviness. She denies new food exposures but reports recent use of a new topical cream, which she suspects may be the trigger. The rash began behind her ear and progressively spread over her entire body. She denies shortness of breath, wheezing, dizziness, or syncope. No fever, no abdominal pain. In the ED today, she received IV fluids, epinephrine, Benadryl, and Pepcid. Labs showed creatinine 1.10 (baseline due to solitary kidney), glucose 196, otherwise unremarkable CBC, CMP, UA, and urine drug screen. She remains hemodynamically stable but symptomatic. Past Medical History see hpi above Past Surgical History see hpi above Family History Reviewed, non-contributory to the management of this case. Past Social History The patient lives at home, denies smoking, alcohol or illicit drugs abuse. Review of Systems Constitutional: No: Fever, Chills, Sweats, Weakness, Malaise, Other Eyes: No: Pain, Vision change, Conjunctivae inflammation, Eyelid inflammation, Other, Redness ENT: No: Ear pain, Ear discharge, Nose pain, Nose discharge, Nose congestion, Mouth pain, Mouth swelling, Throat pain, Throat swelling, Other Respiratory: Shortness of breath, SOB with excertion; No: Cough, Dry, Wheezing, Hemoptysis, Pleuritic Pain, Sputum, Wheezing, Other Cardiovascular: No: Chest Pain, Palpitations, Orthopnea, Paroxysmal Noc. Dyspnea, Edema, Lt Headedness, Other Gastrointestinal: No: Nausea, Vomiting, Abdominal Pain, Diarrhea, Constipation, Melena, Hematochezia, Other Genitourinary: No Dysuria, No Frequency, No Incontinence, No Hematuria, No Retention, No Other Musculoskeletal: No: other, neck pain, shoulder pain, arm pain, back pain, hand pain, leg pain, foot pain Skin: Rash Neurological: No: Weakness, Numbness, Incoordination, Change in speech, Confusion, Seizures, Other Allergies: Coded Allergies: Diphtheria Toxoid (Verified Allergy, Unknown, 05/10/22) Pertussis Vaccine (Verified Allergy, Unknown, Hives, 05/11/22) Hives and leg atrophy during childhood. Tetanus Toxoids (Verified Allergy, Unknown, 05/10/22) Uncoded Allergies: Seafood (Allergy, Mild, 11/27/24) R/O, Hives, facial swelling TDAP (Allergy, Unknown, 01/10/20) Exam Vital Signs Vital Signs Date Time Temp Pulse Resp B/P (MAP) Pulse Ox O2 Delivery O2 Flow Rate FiO2 11/27/24 09:32 98.1 103 16 128/77 (94) 98 98.1 11/27/24 09:32 Room Air General Appearance: Alert, Oriented X3, Cooperative, No acute distress HEENT: Atraumatic, PERRLA, Mucous membr. moist/pink Respiratory: Clear to auscultation, Normal air movement Cardiovascular: Regular rate, Normal S1, Normal S2, No murmurs Abdominal: Normal bowel sounds, Soft, No tenderness, No hepatospenomegaly, No masses Extremities: No clubbing, No cyanosis, No edema, Normal pulses, No tenderness/swelling Skin: No significant lesion (Generalized body with scattered you tachycardia face included) Neuro: Normal gait, Normal speech, Strength at 5/5 X4 ext, Normal tone, Sensation intact, Cranial nerves 3-12 NL Psych/Mental Status: Mental status NL, Mood NL Labs/Xrays I reviewed labs, imaging CT scan abdomen pelvis, EKG and all diagnostic studies on this patient from ED records and the medical chart Labs Test 11/27/24 10:15 11/27/24 09:27 11/27/24 09:18 Range/Units White Blood Count 13.9 H 4.4-10.8 10^3/uL Red Blood Count 4.58 4.0-5.20 10^6/uL Hemoglobin 14.1 12.2-16.2 g/dL Hematocrit 41.7 36.0-46.0 % Mean Corpuscular Volume 91.1 80.0-100.0 fL Mean Corpuscular Hemoglobin 30.9 28.0-32.0 pg Mean Corpuscular Hemoglobin Concent 33.9 32.0-36.0 g/dL Red Cell Distribution Width 13.3 11.8-14.3 % Platelet Count 289 140-450 10^3/uL Mean Platelet Volume 9.0 6.9-10.8 fL Neutrophils (%) (Auto) 93.4 H 37.0-80.0 % Lymphocytes (%) (Auto) 4.5 L 10.0-50.0 % Monocytes (%) (Auto) 2.0 0.0-12.0 % Eosinophils (%) (Auto) 0.0 0.0-7.0 % Basophils (%) (Auto) 0.1 0.0-2.0 % Neutrophils # (Auto) 12.9 H 1.6-8.6 10 ^3/uL Lymphocytes # (Auto) 0.6 0.4-5.4 10 ^3/uL Monocytes # (Auto) 0.3 0-1.3 10 ^3/uL Eosinophils # (Auto) 0 0-0.8 10 ^3/uL Basophils # (Auto) 0 0-0.2 10 ^3/uL Nucleated Red Blood Cells 0.0 % Sodium Level 137 136-145 mmol/L Potassium Level 3.6 3.5-5.1 mmol/L Chloride Level 105 98-107 mmol/L Carbon Dioxide Level 19 L 20-31 mmol/L Anion Gap 13 5-15 Blood Urea Nitrogen 18 9-23 mg/dL Creatinine 1.10 H 0.550-1.02 mg/dL Glomerular Filtration Rate Calc 71 >90 mL/min BUN/Creatinine Ratio 16.4 10.0-20.0 Serum Glucose 196 H 74-106 mg/dL Calcium Level 9.7 8.7-10.4 mg/dL Urine Color Light-yellow Yellow Urine Clarity Clear Clear Urine pH 6.0 5.0-9.0 Urine Specific [place] 1.022 1.001-1.035 Urine Protein Trace H Negative Urine Ketones Negative Negative Urine Blood Negative Negative /uL Urine Nitrite Negative Negative Urine Bilirubin Negative Negative Urine Urobilinogen Normal Negative mg/dL Urine Leukocyte Esterase Negative Negative /uL Urine RBC 1 0 - 4 /hpf Urine Microscopic WBC 1 0-5 /HPF Urine Squamous Epithelial Cells Few <5 /hpf Urine Bacteria Few H None Seen /hpf Urine Glucose Trace Normal mg/dL Urine Test Negative Negative Urine Opiates Screen Neg NEGATIVE Urine Fentanyl Screen Neg NEGATIVE Urine Barbiturates Screen Neg NEGATIVE Urine Phencyclidine Screen Neg NEGATIVE Urine Amphetamines Screen Neg NEGATIVE Urine Benzodiazepines Screen Neg NEGATIVE Urine Cocaine Screen Neg NEGATIVE Urine Cannabinoids Screen Neg NEGATIVE Assessment/Plan Assessment/Plan 29-year-old female with solitary kidney and history of recurrent UTIs presenting with persistent generalized rash and throat tightness following suspected a llergic reaction without clear etiology. Will admit for management of acute severe allergic reaction and airway monitoring. Acute severe allergic reaction (unspecified allergen exposure, likely topical agent) Continue IV methylprednisolone Scheduled IV Benadryl and IV Pepcid Add Claritin PO daily Continue epinephrine PRN for worsening symptoms Monitor airway closely for progression of throat tightness or angioedema Maintain NPO except medications until stable, then advance diet Allergy consult on discharge and outpatient testing acute Throat tightness and chest heaviness without respiratory distress Continuous pulse oximetry Monitor for stridor, wheezing, or increased work of breathing CHRONIC PROBLEM LIST: Solitary Kidney Q63.1 Recurrent Urinary Tract Infections N39.0 History of Section Z98.891 FEN / PROPHYLAXIS (PPx): Fluids/Electrolytes/Nutrition IV normal saline at maintenance rate Advance diet as tolerated after stabilization DVT Prophylaxis Apply SCDs while inpatient Pharmacologic prophylaxis not indicated due to short-term stay and mobility and ambulatory GI Prophylaxis pepcid while on steriods DISPOSITION Admit for ongoing management of severe allergic reaction with close airway monitoring. Continue IV antihistamines, steroids, and supportive care. Allergy consult for evaluation of potential topical allergen exposure. Monitor renal function due to solitary kidney. Anticipate discharge once rash resolves and airway symptoms are stable. Plan discussed with: Patient My Orders Orders - YON ALEX DNP Procedure Category Date Status Time Admit ADMIT 11/27/24 Verified 12:02 Allergies ANEUDY 11/27/24 Verified 12:02 Code Status CODE 11/27/24 Verified 12:02 0.9% Ns 1000 Ml PHA 11/27/24 Verified 12:15 Temazepam (Restoril) PHA 11/27/24 Verified 12:15 Ondansetron Hcl PHA 11/27/24 Verified (Zofran) 12:15 Docusate Sodium PHA 11/27/24 Verified Capsule (Colace 12:15 Complete Blood Count LAB 11/28/24 Verified 04:00 Comprehensive LAB 11/28/24 Verified Metabolic Panel 04:00 Condition: Stable ANEUDY 11/27/24 Verified 12:02 BRP ANEUDY 11/27/24 Verified 12:02 Sequential ANEUDY 11/27/24 Verified Compression Device Nitroglycerin PHA 11/27/24 Verified Sublingual (Ntrostat 12:15 Stat Ekg For Chest [facility] 11/27/24 Verified Pain 12:02 Notify Md Of Changes [facility] 11/27/24 Verified From Base 12:02 Paint Roller Assembler For [facility] 11/27/24 Verified 24 Hours 12:02 Emergency Dysrhythmia [facility] 11/27/24 Verified Protocol 12:02 Rhythm Strips Once [facility] 11/27/24 Verified Every Shift 12:02 Oxygen By Nasal RT 11/27/24 Verified Cannula 12:02 Glucose Blood [facility] 11/27/24 Verified (Accu-Chek Comfort 17:00 Mild Sliding Scale PHA 11/27/24 Verified 17:00 Dextrose 50% Syringe [facility] 11/27/24 Verified 12:15 Date of Service: Nov 27, 2024 Billing Provider: YON ALEX DNP Common Visit Codes: [id number] INP/OBS CARE (HIGH) YON ALEX DNP Nov 27, 2024 12:06
[2024-11-27] MEDS ORDERED: DOCUSATE SOD 100 MG CAP PO PRN (12:15)
[2024-11-27] MEDS ORDERED: ONDANSETRON HCL 4 MG/2 ML VIAL IV PRN (12:15)
[2024-11-27] MEDS ORDERED: NITROGLYCERIN 0.4 MG SL TAB SL PRN (12:15)
[2024-11-27] MEDS ORDERED: DEXTROSE (50%) 50ML SYRG IV PRN (12:15)
[2024-11-27 12:40] VITALS: BP 102/51; PULSE 86; RESP 18; TEMP 97.7; O2SAT 100
[2024-11-27] MEDS: hydrOXYzine 25 MG TAB or CAP PO ONE (12:57)
[2024-11-27] MEDS: LORATADINE 10 MG TAB PO ONE (12:58)
[2024-11-27] MEDS: SODIUM CHLORIDE 0.9% 1,000 ML IV SCH (12:59)
[2024-11-27] MEDS: diphenhdrAMINE HCL 50 MG/1 ML VL IV SCH (14:04)
[2024-11-27] MEDS: methylPREDNISolone SOD SUCC 125 MG/2 ML VL IV SCH (14:07)
[2024-11-27 17:00] VITALS: BP 108/49; PULSE 92; RESP 18; TEMP 98.3; O2SAT 98
[2024-11-27] MEDS: ACCU-CHEK COMFORT CURVE STRIP VI SCH (17:53)
[2024-11-27] MEDS: InsuLIN REG 1unit/0.01ml Soln (100units/ml) SC SCH (17:54)
[2024-11-27] MEDS: FAMOTIDINE (10MG/ML) 2ML VL IV SCH (22:14)
[2024-11-27 22:15] VITALS: BP 117/55; PULSE 84; PULSE 85; RESP 17; RESP 18; TEMP 98.8; O2SAT 98
[2024-11-28] VITALS (7 sets, daily range): BP systolic 101–118; BP diastolic 49–63; PULSE 67–94; RESP 17–19; TEMP 98.1–99.1; O2SAT 96–99
[2024-11-28 07:13] LABS: Basophils # (auto) 0 10 ^3/uL (0-0.2); Eosinophils # (auto) 0 10 ^3/uL (0-0.8); Lymphocytes # (auto) 1.1 10 ^3/uL (0.4-5.4); Lymphocytes % (auto) 8.4 % (10.0-50.0); Mean Corpuscular Hemoglobin 30.1 pg (28.0-32.0); Mean Corpuscular Hgb Conc. 33.3 g/dL (32.0-36.0); Mean Corpuscular Volume 90.4 fL (80.0-100.0); Monocytes # (auto) 0.5 10 ^3/uL (0-1.3); Monocytes % (auto) 3.6 % (0.0-12.0); Neutrophils # (auto) 11.6 10 ^3/uL (1.6-8.6); Platelet Count (auto) 276 10^3/uL (140-450); Red Blood Cells 3.99 10^6/uL (4.0-5.20); Red Cell Distribution Width 13.5 % (11.8-14.3); White Blood Cell 13.2 10^3/uL (4.4-10.8)
[2024-11-28 07:14] LABS: Alanine Aminotransferase 16 U/L (7-40); Albumin 3.8 g/dL (3.2-4.8); Alkaline Phosphatase 46 U/L (46-116); Anion Gap 9 (5-15); BUN/Creatinine Ratio 19.5 (10.0-20.0); Blood Urea Nitrogen 16 mg/dL (9-23); Carbon Dioxide 21 mmol/L (20-31); Potassium 4.3 mmol/L (3.5-5.1); Sodium 141 mmol/L (136-145); Total Protein 6.2 g/dL (5.7-8.2)
[2024-11-28 07:15] LABS: Bilirubin, Total 0.6 mg/dL (0.2-1.0)
[2024-11-28 07:20] LABS: Aspartate Aminotransferase 9 U/L (13-40); Chloride 111 mmol/L (98-107); Glucose 121 mg/dL (74-106)
[2024-11-28] MEDS: LORATADINE 10 MG TAB PO SCH (09:43)
--- NOTE | 2024-11-28 22:02 | DVHPN2 ---
Subjective The patient is seen and examined at bedside. Still have hives Reviewed: Care Plan, H&P, Labs, Medications, Previous Orders, Radiology Changes from previous H/P or p: No Changes Eyes: No Pain, No Vision change, No Conjunctivae inflammation, No Eyelid inflammation, No Other, No Redness ENT: No Ear pain, No Ear discharge, No Nose pain, No Nose discharge, No Nose congestion, No Mouth pain, No Mouth swelling, No Throat pain, No Throat swelling, No Other Cardiovascular: No Chest Pain, No Palpitations, No Orthopnea, No Paroxysmal Noc. Dyspnea, No Edema, No Lt Headedness, No Other Respiratory: No Cough, No Dry; Shortness of breath, SOB with excertion; No Wheezing, No Hemoptysis, No Pleuritic Pain, No Sputum, No Other Gastrointestinal: No Nausea, No Vomiting, No Abdominal Pain, No Diarrhea, No Constipation, No Melena, No Hematochezia, No Other Genitourinary: No Dysuria, No Frequency, No Incontinence, No Hematuria, No Retention, No Other Musculoskeletal: No other, No neck pain, No shoulder pain, No arm pain, No back pain, No hand pain, No leg pain, No foot pain Skin: Rash Objective Vitals Vital Signs Date Time Temp Pulse Resp B/P (MAP) Pulse Ox O2 Delivery O2 Flow Rate FiO2 11/28/24 17:00 98.1 94 19 101/53 (69) 98 98.1 11/28/24 08:00 Room Air* 0 21 Intake/Output Intake and Output 11/28/24 07:00 Intake Total 1320 ml Balance 1320 ml Intake Oral 0 ml IV Total 1320 ml # Voids 8 # Bowel Movements 3 General Appearance: Alert, Oriented X3, Cooperative, No acute distress HEENT: Atraumatic, PERRLA, EOMI, Mucous membr. moist/pink Neck: Supple Lungs: Clear to auscultation, Normal air movement Cardiovascular: Regular rate, Normal S1, Normal S2, No murmurs, Rubs Abdomen: Normal bowel sounds, Soft, No tenderness Skin: Rashes Lymph: Other (hives all over the body.) Medications Current Medications Medications Dose Ordered Sig/Rubina Route Start Time Stop Time Status Last Admin Dose Admin Sodium Chloride 1,000 ml @ 120 mls/hr Q8H20M IV 11/27/24 12:15 11/28/24 14:10 120 MLS/HR Temazepam 15 mg QHSP PRN PO 11/27/24 12:15 Ondansetron HCl 4 mg Q4HP PRN IV 11/27/24 12:15 Docusate Sodium 100 mg BIDPRN PRN PO 11/27/24 12:15 Nitroglycerin 0.4 mg Q5MINP PRN SL 11/27/24 12:15 Diagnostic Test (Pha) 1 strip ACHS 11/27/24 17:00 11/28/24 17:08 1 STRIP Insulin Human Regular ACHS SC 11/27/24 17:00 11/27/24 21:51 2 UNITS Dextrose 50 ml UD PRN IV 11/27/24 12:15 Famotidine 20 mg Q12HR IV 11/27/24 22:00 11/28/24 09:44 20 MG Methylprednisolone Sodium Succinate 40 mg Q8HR IV 11/27/24 14:00 11/28/24 14:16 40 MG Diphenhydramine HCl 25 mg Q4HP IV 11/27/24 14:00 11/28/24 17:44 25 MG Loratadine 20 mg DAILY PO 11/29/24 10:00 Laboratory Results Laboratory Tests 11/28/24 06:05 Chemistry Test 11/28/24 06:05 Albumin 3.8 g/dL (3.2-4.8) Calcium Level 9.0 mg/dL (8.7-10.4) Total Protein 6.2 g/dL (5.7-8.2) LFT Test 11/28/24 06:05 Alanine Aminotransferase (ALT) 16 U/L (7-40) Alkaline Phosphatase 46 U/L (46-116) Aspartate Amino Transferase (AST) 9 U/L (13-40) L Total Bilirubin 0.6 mg/dL (0.2-1.0) Urinalysis Test 11/27/24 09:18 Urine Color Light-yellow (Yellow) Urine Clarity Clear (Clear) Urine pH 6.0 (5.0-9.0) Urine Specific [place] 1.022 (1.001-1.035) Urine Protein Trace (Negative) H Urine Ketones Negative (Negative) Urine Blood Negative /uL (Negative) Urine Nitrite Negative (Negative) Urine Bilirubin Negative (Negative) Urine Urobilinogen Normal mg/dL (Negative) Urine Leukocyte Esterase Negative /uL (Negative) Urine RBC 1 /hpf (0 - 4) Urine Microscopic WBC 1 /HPF (0-5) Urine Squamous Epithelial Cells Few /hpf (<5) Urine Bacteria Few /hpf (None Seen) H Urine Glucose Trace mg/dL (Normal) Urine Test Negative (Negative) Labs and/or images reviewed: Labs reviewed by me Assessment/Plan Assessment/Plan Acute severe allergic reaction (unspecified allergen exposure, likely topical agent) acute Throat tightness and chest heaviness without respiratory distress Solitary Kidney Recurrent Urinary Tract Infections History of Section Continuing current management. Continuing with antihistamine. I am going to increase her Claritin to 20 mg p.o. q.day. Continuing with IV Benadryl and Solu-Medrol. Discussed with the patient regarding to source of allergy. Per patient she ate shrimp cerviche the night before she had this problem.Prior to this episode, she ate shrimp before without any problem. I advised her to follow up with the accounts executive as outpatient to find out if she allergic to shrimp or seafood. This medical document was created using an electronic medical record system with [employer] computerized dictation system. Although this document has been carefully reviewed, there may still be some phonetic and typographical errors. These areas are purely typographical due to imperfections of the software programs, and do not reflect any compromise in the patient's medical care. Plan discussed with: Patient My Orders Orders - ALEX HOUSER MD Procedure Category Date Status Time Mechanical Soft Diet DIET 11/28/24 Transmitted Lunch Loratadine Tablet PHA 11/29/24 In Process (Claritin Tablet) 10:00 Date of Service: Nov 28, 2024 Billing Provider: ALEX HOUSER MD Common Visit Codes: [id number] INP/OBS CARE(HIGH) ALEX HOUSER MD Nov 28, 2024 22:02
[2024-11-29] MEDS: TEMAZEPAM 15 MG CAP PO PRN (00:01)
[2024-11-29 01:00] VITALS: BP 123/67; PULSE 81; RESP 18; TEMP 98.5; O2SAT 99
[2024-11-29 05:00] VITALS: BP 109/63; PULSE 57; RESP 18; TEMP 97.7; O2SAT 99
[2024-11-29 09:00] VITALS: BP 127/73; PULSE 98; RESP 17; TEMP 98.8; O2SAT 100
[2024-11-29] MEDS: LORATADINE 10 MG TAB PO SCH (09:26)
--- NOTE | 2024-11-29 11:25 | DVHPN2 ---
Subjective The patient is seen and examined at bedside. Still have hives Reviewed: Care Plan, H&P, Labs, Medications, Previous Orders, Radiology Eyes: No Pain, No Vision change, No Conjunctivae inflammation, No Eyelid inflammation, No Other, No Redness ENT: No Ear pain, No Ear discharge, No Nose pain, No Nose discharge, No Nose congestion, No Mouth pain, No Mouth swelling, No Throat pain, No Throat swelling, No Other Cardiovascular: No Chest Pain, No Palpitations, No Orthopnea, No Paroxysmal Noc. Dyspnea, No Edema, No Lt Headedness, No Other Respiratory: No Cough, No Dry; Shortness of breath, SOB with excertion; No Wheezing, No Hemoptysis, No Pleuritic Pain, No Sputum, No Other Gastrointestinal: No Nausea, No Vomiting, No Abdominal Pain, No Diarrhea, No Constipation, No Melena, No Hematochezia, No Other Genitourinary: No Dysuria, No Frequency, No Incontinence, No Hematuria, No Retention, No Other Musculoskeletal: No other, No neck pain, No shoulder pain, No arm pain, No back pain, No hand pain, No leg pain, No foot pain Skin: Rash Objective Vitals Vital Signs Date Time Temp Pulse Resp B/P (MAP) Pulse Ox O2 Delivery O2 Flow Rate FiO2 11/29/24 09:00 98.8 98 17 127/73 (91) 100 98.8 11/29/24 08:00 Room Air* 0 21 Intake/Output Intake and Output 11/29/24 07:00 Intake Total 1510 ml Output Total 1 ml Balance 1509 ml Intake Oral 550 ml IV Total 960 ml Output Stool Total 1 ml # Voids 4 General Appearance: Alert, Oriented X3, Cooperative, No acute distress HEENT: Atraumatic, PERRLA, EOMI, Mucous membr. moist/pink Neck: Supple Lungs: Clear to auscultation, Normal air movement Cardiovascular: Regular rate, Normal S1, Normal S2, No murmurs, Rubs Abdomen: Normal bowel sounds, Soft, No tenderness Skin: Rashes Lymph: Other (hives all over the body.) Medications Current Medications Medications Dose Ordered Sig/Rubina Route Start Time Stop Time Status Last Admin Dose Admin Sodium Chloride 1,000 ml @ 120 mls/hr Q8H20M IV 11/27/24 12:15 11/28/24 14:10 120 MLS/HR Temazepam 15 mg QHSP PRN PO 11/27/24 12:15 11/29/24 00:01 15 MG Ondansetron HCl 4 mg Q4HP PRN IV 11/27/24 12:15 Docusate Sodium 100 mg BIDPRN PRN PO 11/27/24 12:15 Nitroglycerin 0.4 mg Q5MINP PRN SL 11/27/24 12:15 Diagnostic Test (Pha) 1 strip ACHS 11/27/24 17:00 11/29/24 11:19 1 STRIP Insulin Human Regular ACHS SC 11/27/24 17:00 11/29/24 11:23 3 UNITS Dextrose 50 ml UD PRN IV 11/27/24 12:15 Famotidine 20 mg Q12HR IV 11/27/24 22:00 11/29/24 09:25 20 MG Methylprednisolone Sodium Succinate 40 mg Q8HR IV 11/27/24 14:00 11/29/24 06:57 40 MG Diphenhydramine HCl 25 mg Q4HP IV 11/27/24 14:00 11/29/24 09:25 25 MG Loratadine 20 mg DAILY PO 11/29/24 10:00 11/29/24 09:26 20 MG Laboratory Results Laboratory Tests 11/28/24 06:05 Urinalysis Test 11/27/24 09:18 Urine Color Light-yellow (Yellow) Urine Clarity Clear (Clear) Urine pH 6.0 (5.0-9.0) Urine Specific [place] 1.022 (1.001-1.035) Urine Protein Trace (Negative) H Urine Ketones Negative (Negative) Urine Blood Negative /uL (Negative) Urine Nitrite Negative (Negative) Urine Bilirubin Negative (Negative) Urine Urobilinogen Normal mg/dL (Negative) Urine Leukocyte Esterase Negative /uL (Negative) Urine RBC 1 /hpf (0 - 4) Urine Microscopic WBC 1 /HPF (0-5) Urine Squamous Epithelial Cells Few /hpf (<5) Urine Bacteria Few /hpf (None Seen) H Urine Glucose Trace mg/dL (Normal) Urine Test Negative (Negative) Assessment/Plan Assessment/Plan Acute severe allergic reaction (unspecified allergen exposure, likely topical agent) acute Throat tightness and chest heaviness without respiratory distress Solitary Kidney Recurrent Urinary Tract Infections History of Section Continuing current management. Continuing with antihistamine. I am going to increase her Claritin to 20 mg p.o. q.day. Continuing with IV Benadryl and Solu-Medrol. Discussed with the patient regarding to source of allergy. Per patient she ate shrimp cerviche the night before she had this problem.Prior to this episode, she ate shrimp before without any problem. I advised her to follow up with the web operations manager as outpatient to find out if she allergic to shrimp or seafood. This medical document was created using an electronic medical record system with [employer] computerized dictation system. Although this document has been carefully reviewed, there may still be some phonetic and typographical errors. These areas are purely typographical due to imperfections of the software programs, and do not reflect any compromise in the patient's medical care. My Orders Orders - ALEX HOUSER MD Procedure Category Date Status Time Mechanical Soft Diet DIET 11/28/24 Transmitted Lunch Loratadine Tablet PHA 11/29/24 In Process (Claritin Tablet) 10:00 ALEX HOUSER MD Nov 29, 2024 11:25
--- NOTE | 2024-11-29 11:49 | DVHDS2 ---
Discharge Summary Date of Admission Nov 27, 2024 at 12:02 Labs/Diagnostic Data: Laboratory Results Test 11/29/24 11:01 11/28/24 06:05 11/27/24 09:18 POC Glucose 168 mg/dl (70-106) White Blood Count 13.2 10^3/uL (4.4-10.8) Red Blood Count 3.99 10^6/uL (4.0-5.20) Hemoglobin 12.0 g/dL (12.2-16.2) Hematocrit 36.0 % (36.0-46.0) Mean Corpuscular Volume 90.4 fL (80.0-100.0) Mean Corpuscular Hemoglobin 30.1 pg (28.0-32.0) Mean Corpuscular Hemoglobin Concent 33.3 g/dL (32.0-36.0) Red Cell Distribution Width 13.5 % (11.8-14.3) Platelet Count 276 10^3/uL (140-450) Mean Platelet Volume 8.9 fL (6.9-10.8) Neutrophils (%) (Auto) 88.0 % (37.0-80.0) Lymphocytes (%) (Auto) 8.4 % (10.0-50.0) Monocytes (%) (Auto) 3.6 % (0.0-12.0) Eosinophils (%) (Auto) 0.0 % (0.0-7.0) Basophils (%) (Auto) 0.0 % (0.0-2.0) Neutrophils # (Auto) 11.6 10 ^3/uL (1.6-8.6) Lymphocytes # (Auto) 1.1 10 ^3/uL (0.4-5.4) Monocytes # (Auto) 0.5 10 ^3/uL (0-1.3) Eosinophils # (Auto) 0 10 ^3/uL (0-0.8) Basophils # (Auto) 0 10 ^3/uL (0-0.2) Nucleated Red Blood Cells 0.0 % Sodium Level 141 mmol/L (136-145) Potassium Level 4.3 mmol/L (3.5-5.1) Chloride Level 111 mmol/L (98-107) Carbon Dioxide Level 21 mmol/L (20-31) Anion Gap 9 (5-15) Blood Urea Nitrogen 16 mg/dL (9-23) Creatinine 0.82 mg/dL (0.550-1.02) Glomerular Filtration Rate Calc 100 mL/min (>90) BUN/Creatinine Ratio 19.5 (10.0-20.0) Serum Glucose 121 mg/dL (74-106) Calcium Level 9.0 mg/dL (8.7-10.4) Total Bilirubin 0.6 mg/dL (0.2-1.0) Aspartate Amino Transferase (AST) 9 U/L (13-40) Alanine Aminotransferase (ALT) 16 U/L (7-40) Alkaline Phosphatase 46 U/L (46-116) Total Protein 6.2 g/dL (5.7-8.2) Albumin 3.8 g/dL (3.2-4.8) Urine Color Light-yellow (Yellow) Urine Clarity Clear (Clear) Urine pH 6.0 (5.0-9.0) Urine Specific [place] 1.022 (1.001-1.035) Urine Protein Trace (Negative) Urine Ketones Negative (Negative) Urine Blood Negative /uL (Negative) Urine Nitrite Negative (Negative) Urine Bilirubin Negative (Negative) Urine Urobilinogen Normal mg/dL (Negative) Urine Leukocyte Esterase Negative /uL (Negative) Urine RBC 1 /hpf (0 - 4) Urine Microscopic WBC 1 /HPF (0-5) Urine Squamous Epithelial Cells Few /hpf (<5) Urine Bacteria Few /hpf (None Seen) Urine Glucose Trace mg/dL (Normal) Urine Test Negative (Negative) Urine Opiates Screen Neg (NEGATIVE) Urine Fentanyl Screen Neg (NEGATIVE) Urine Barbiturates Screen Neg (NEGATIVE) Urine Phencyclidine Screen Neg (NEGATIVE) Urine Amphetamines Screen Neg (NEGATIVE) Urine Benzodiazepines Screen Neg (NEGATIVE) Urine Cocaine Screen Neg (NEGATIVE) Urine Cannabinoids Screen Neg (NEGATIVE) Other Laboratory Tests 11/28/24 06:05 Discharge Statement: "Patient was advised to return to the ER or call 911 if any headaches, dizziness, shortness of breath, chest pain, abdominal pain, bleeding, fevers, or worsening of medical condition. Patient was counseled about treatment plan, medications, possible side effects, patientverbalized understanding. All questions were answered to the best of my ability. This discharge took greater then 30 minutes in planning, reviewing documentation, counseling the patient, and discussing with other team members." ASSESSMENT ASSESSMENT Assessment ALEX HOUSER MD Nov 29, 2024 11:49
[2024-11-29] MEDS ORDERED: EPIN0.1I11 IJ ×2 (12:00)
[2024-11-29] MEDS ORDERED: METH4PAK PO ×2 (12:00)
[2024-11-29] MEDS ORDERED: LORA-1130 PO ×2 (12:00)
[2024-11-29] MEDS ORDERED: LEVO500T91 PO ×2 (12:11)
[2024-11-29 13:00] VITALS: BP 128/70; PULSE 98; RESP 16; TEMP 99.2; O2SAT 98
== END 2024-11-29 15:40 | disposition home or self-care (01) | DRG 811 ==
LOC: ER 08:41 → OVERFLOW 12:02 → EAST 22:15
PROVIDERS: ADMIT Internal Medicine; ATTEND Internal Medicine
DX: T78.49XA Other allergy, initial encounter (principal); L50.9 Urticaria, unspecified; X58.XXXA Exposure to other specified factors, initial encounter; Z87.440 Personal history of urinary (tract) infections; Z98.891 History of uterine scar from previous surgery; Z88.7 Allergy status to serum and vaccine; Z91.09 Other allergy status, other than to drugs and biological substances; Z79.899 Other long term (current) drug therapy; Z91.013 Allergy to seafood
CPT/HCPCS: 36415; 80048; 80053; 80307; 81001; 81025; 82962; 85025; 96361; 96372; 96374; 96375; G0378; J0171; J1815; J3490

== ENCOUNTER → 2024-12-22 | Outpatient (CLI) | payer MEDICAID ==
[~2024-12-22] MED LIST changes: +EPIN0.1I11 IJ; +LORA-1130 PO; +METH4PAK PO; -PRED20TA2 PO
== END | disposition home or self-care (01) ==
LOC: LAB 12:15
PROVIDERS: ATTEND Internal Medicine
DX: N39.0 Urinary tract infection, site not specified (principal)
CPT/HCPCS: 87086

== ENCOUNTER → 2025-02-09 | Outpatient (CLI) | payer MEDICAID | END | disposition home or self-care (01) | LOC: LAB 10:32 | PROVIDERS: ATTEND Internal Medicine | DX: N39.0 Urinary tract infection, site not specified (principal) | CPT/HCPCS: 87086; 87088; 87186 ==

== ENCOUNTER → 2025-02-09 | Outpatient (CLI) | payer MEDICAID ==
[2025-02-10 10:07] LABS: Anti-Nuclear Antibody Direct Negative (Negative); Anti-dsDNA Antibody <1 IU/mL (0-9); Antiscleroderma-70 Antibody <0.2 AI (0.0-0.9); Sjogren's Anti-SS-A Antibody <0.2 AI (0.0-0.9); Sjogren's Anti-SS-B Antibody <0.2 AI (0.0-0.9)
== END | disposition home or self-care (01) ==
LOC: LAB 09:21
PROVIDERS: ATTEND Internal Medicine
DX: R21 Rash and other nonspecific skin eruption (principal)
CPT/HCPCS: 36415; 85652; 86141; 86160; 86225; 86235; 86376; 86431